=== PATIENT | male | born 1965 | race Caucasian/White ===

== ENCOUNTER 2021-08-16 10:59 | Emergency (ER) | payer OTHER, SELFPAY ==
[2021-08-16 11:27] VITALS: BP 137/58; PULSE 98; RESP 18; TEMP 36.4; O2SAT 98
--- NOTE | 2021-08-16 11:31 | ED.GENADULT ---
HPI - General Adult General Chief complaint: Upper Respiratory Infection Stated complaint: cough,congestion,sorethroat Source: patient Mode of arrival: ambulatory Limitations: no limitations History of Present Illness HPI narrative: Patient presents for evaluation of respiratory complaints for the last 4 to 5 days. Symptoms include sinus congestion, sore throat, nonproductive cough and muffled hearing in left ear. He felt like he had water in the left ear . He attempted to clean it out with a Q tip and now has muffled hearing in left ear. No fever, chills, nausea, vomiting. He had diarrhea this morning but attributes it to OTC meds he has been taking including Dayquil, Nyquil and robitussin. He is a former smoker, with quit date in the last week. His grandson, with whom he has been spending time recently, has similar symptoms. Pt received a flu shot this year, COVID vaccinations and booster. He denies any chest pain, SOB, nausea, vomiting, fever or chills. Related Data Allergies Allergy/AdvReac Type Severity Reaction Status Date / Time No Known Allergies Allergy Verified 08/16/21 11:29 Review of Systems Review of Systems: CONSTITUTIONAL: Denies fever, chills, or sweats. EYES: Denies visual changes, redness, or discharge. ENT: Reports sinus congestion, sore throat, left-sided otalgia, muffled hearing in the left ear. CARDIOVASCULAR: Denies chest pain, palpitations, or edema. RESPIRATORY: Reports nonproductive cough. Denies dyspnea. GASTROINTESTINAL: Reports diarrhea. Denies abdominal pain, nausea, vomiting GENITOURINARY: Denies dysuria or hematuria. SKIN: Denies rash or itching. MUSCULOSKELETAL: Denies back pain, joint pain, or myalgia. NEUROLOGIC: Denies headache, numbness, dizziness, or weakness. PSYCHIATRIC: Denies anxiety or depression. [facility] Past Medical History Medical History History of tobacco use Surgical History Surgical History H/O arthroscopic knee surgery History of right knee joint replacement Family History Family History Mother Family history non-contributory Social History Social History Smoking status: Former smoker Substance use: current Substance use type: marijuana Living arrangements: with family Gender identity (if verbalized by the patient): Male Sexual Orientation (if Verbalized by the Patient): Straight or Heterosexual Spiritual care concerns: No Exam Narrative: GENERAL: Well-appearing, well-nourished, and in no acute distress. HEAD: Normocephalic, atraumatic. EYES: PERRLA and EOMI. ENT: Nares clear, no rhinorrhea or epistaxis. Mucous membranes moist. Oropharynx without tonsillar hypertrophy exudate or other lesions. Left ear canal is erythematous with yellow exudate. Left TM is erythematous. NECK: Supple. No adenopathy or masses. No carotid bruits or JVD CHEST: Clear to auscultation. No respiratory distress. No wheezes rales or rhonchi HEART: Regular rate and rhythm. No murmur heard. Normal peripheral pulses. ABDOMEN: Soft, nontender, nondistended, normal active bowel sounds. EXTREMITIES: Normal range of motion. No edema. SKIN: Warm, dry, no rash. NEURO: No focal deficits. Alert and oriented x3. PSYCH: Normal mood and affect. Course Course Emergency Course: This is a 56-year-old male who presented with complaints of respiratory symptoms for the last 4 to 5 days. Strep, influenza, COVID were all negative. Exam is consistent with acute viral syndrome. Continue medications for symptom control. He has evidence of otitis externa. Will discharge with Cetraxal. Follow up outpatient for further evaluation and treatment and return for worsening symptoms. Pt in agreement with plan of care. Level of Care: Express Care Visit Vital Signs Vital signs: Vital Signs Temperature 36.4 C
== END 2021-08-16 12:00 | disposition home or self-care (01) ==
PROVIDERS: Emergency Provider Nurse Practitioner
DX: B34.9 Viral infection, unspecified (principal); H60.92 Unspecified otitis externa, left ear; Z20.822 Contact with and (suspected) exposure to COVID-19; Z87.891 Personal history of nicotine dependence
CPT/HCPCS: 87081; 87426; 87804; 87880; 99203; C9803; G0463

== ENCOUNTER 2022-02-23 15:39 | Emergency (ER) | payer OTHER, SELFPAY ==
[2022-02-23 16:22] VITALS: BP 135/89; PULSE 83; RESP 16; TEMP 36.4; O2SAT 100
--- NOTE | 2022-02-25 12:20 | ED.GENADULT ---
HPI - General Adult General Chief complaint: Upper Respiratory Infection Stated complaint: cough,congestion History of Present Illness HPI narrative: 56 y/o male. PMHx Former smoker. Presents to [facility] today with acute complaints of purulent nasal discharge and 'green' productive cough. Manifestations ongoing for > 2 wks. No fevers. Denies chest pain, palpitations,, wheezing, dyspnea. No GI upset, N/V. Denies known ill contacts. Related Data Allergies Allergy/AdvReac Type Severity Reaction Status Date / Time No Known Allergies Allergy Verified 02/23/22 16:30 Review of Systems Review of Systems: CONSTITUTIONAL: Denies fever, chills, sweats. EYES: Denies visual changes, redness, discharge. ENT: Positive rhinorrhea, congestion. No sore throat, otalgia. CARDIOVASCULAR: Denies chest pain, palpitations, edema. RESPIRATORY: Denies dyspnea, wheezing. Positive 'green' productive cough GASTROINTESTINAL: Denies abdominal pain, nausea, vomiting, diarrhea. All other systems have been reviewed: Unless noted remaining ROS Negative. PMFSH Past Medical History Medical History History of tobacco use Surgical History Surgical History H/O arthroscopic knee surgery History of right knee joint replacement Family History Family History Mother Family history non-contributory Social History Social History Smoking status: Former smoker Substance use: current Substance use type: marijuana Gender identity (if verbalized by the patient): Male Sexual Orientation (if Verbalized by the Patient): Straight or Heterosexual Spiritual care concerns: No Exam Narrative: GENERAL: This is a well-nourished, well-developed adult, in no apparent distress. HEAD: normocephalic, atraumatic. EYES: PERRL. Sclera clear/white. EARS: External ears normal, auditory canals clear and without drainage, TMs normal. NOSE: External nose normal. Positive Rhinorrhea, no obstruction, nares patent. THROAT: Mucous membranes moist, posterior pharynx clear. No exudates. NECK: Neck supple, non-tender without lymphadenopathy, masses or thyromegaly. CARDIOVASCULAR: Regular rate and rhythm without murmurs, gallops, or rubs. RESPIRATORY: Clear to auscultation. Breath sounds equal bilaterally. No wheezes, rales, or rhonchi. GASTROINTESTINAL: Abdomen soft, non-tender, nondistended. Bowel sounds are active. No guarding. SKIN: warm, intact with no suspicious lesions or rash, good texture and turgor. NEURO: Alert, active, and age appropriate. No focal neurologic deficits. EXTREMITIES: Negative. Course Course Level of Care: Express Care Visit Vital Signs Vital signs: Vital Signs Temperature 36.4 C L 02/23/22 16:22 Pulse Rate 83 02/23/22 16:22 Respiratory Rate 16 02/23/22 16:22 Blood Pressure 135/89 02/23/22 16:22 Pulse Oximetry 100 02/23/22 16:22 Temperature 36.4 C L 02/23/22 16:22 Pulse Rate 83 02/23/22 16:22 Respiratory Rate 16 02/23/22 16:22 Blood Pressure 135/89 02/23/22 16:22 Pulse Oximetry 100 02/23/22 16:22 Medical Decision Making Differential Diagnosis Differential Diagnosis: Differential Diagnosis: Consideration of the following conditions may be warranted for the presenting problem, they are not final diagnoses: upper respiratory infection, otitis media, sinusitis, RSV viral infection, PNA, bronchitis, pharyngitis, Streptococcal sore throat, COVID-19, Influenza, and other. Vital Signs Vital Signs: Vital Signs Temperature 36.4 C L 02/23/22 16:22 Pulse Rate 83 02/23/22 16:22 Respiratory Rate 16 02/23/22 16:22 Blood Pressure 135/89 02/23/22 16:22 Pulse Oximetry 100 02/23/22 16:22 Temperature 36.4 C L 02/23/22 16:22 Pulse Rate 83 02/23/22 16:22 Respiratory Rate 16 02/23/22 16:2
== END 2022-02-23 17:09 | disposition home or self-care (01) ==
PROVIDERS: Emergency Provider Nurse Practitioner Adult Health
DX: J40 Bronchitis, not specified as acute or chronic (principal); Z87.891 Personal history of nicotine dependence; F12.90 Cannabis use, unspecified, uncomplicated
CPT/HCPCS: 99213; G0463

== ENCOUNTER 2022-07-12 13:28 | Emergency (ER) | payer OTHER, SELFPAY ==
--- NOTE | 2022-07-12 13:32 | ED.EYEPROB ---
HPI - Eye Problem General Chief complaint: Eye Problems Stated complaint: eye irritation Time Seen by Provider: 07/12/22 13:32 Source: patient Mode of arrival: ambulatory Limitations: no limitations History of Present Illness HPI Narrative: A 57-year-old male who presents with bilateral eye irritation, redness, mildly blurred vision since Sunday. Patient states grandson has pinkeye currently. Patient denies any pain. Woke up today with eyes matted shut. Patient states symptoms started in the right eye today have moved to left eye along with right eye. Denies any fever, chills, congestion, ear pain, cough, nausea, vomiting, diarrhea. Related Data Allergies Allergy/AdvReac Type Severity Reaction Status Date / Time No Known Allergies Allergy Verified 07/12/22 13:46 Review of Systems Review of Systems: All systems reviewed & are unremarkable except as noted in HPI and below Constitutional: Constitutional: Denies body ache(s), Denies fever(s), Denies headache(s), Denies malaise and Denies weakness Eyes: Eyes: Reports blurry vision, Reports eye discharge, Reports irritation, Reports itchy eyes, Denies loss of vision and Denies eye pain ENT: Denies otalgia, Denies headache(s), Denies nasal discharge, Denies sinus pain and Denies sore throat Cardiovascular: Cardiovascular: Denies chest pain, Denies irregular heart rhythm and Denies dyspnea Respiratory: Respiratory: Denies dyspnea Gastrointestinal: Gastrointestinal: Denies abdominal pain, Denies diarrhea, Denies nausea and Denies vomiting Musculoskeletal: Musculoskeletal: Denies back pain, Denies myalgias and Denies arthralgias Integumentary/Breasts: Skin/Breast: Denies pruritus and Denies rash Neurologic: Denies headache(s), Denies loss of vision and Denies weakness Psychiatric: Psychiatric: Reports no additional psychiatric complaints Allergic/Immunologic: Allergic/Immunologic: Reports itchy eyes PMFSH Past Medical History Medical History History of tobacco use Surgical History Surgical History H/O arthroscopic knee surgery History of right knee joint replacement Family History Family History Mother Family history non-contributory Social History Social History Smoking status: Former smoker Substance use: current Substance use type: marijuana Living arrangements: with family Gender identity (if verbalized by the patient): Male Sexual Orientation (if Verbalized by the Patient): Straight or Heterosexual Spiritual care concerns: No Comments At time of signature, agree with nursing past medical, surgical, social and family history. There is no relevant family history pertinent to the presenting complaint. Exam Const: General: cooperative, healthy appearing, comfortable, no acute distress and well nourished Nutritional Appearance: well nourished Orientation/consciousness: patient oriented x3 Limitations: no limitations HENMT: Head: normal to inspection, normocephalic and atraumatic Ears: external ears normal Face/Nose/Sinus: Normal external nose present, normal facial exam and face symmetric Face and sinus: normal facial exam and face symmetric Mouth: Yes lip normal Eyes: General: appearance normal, both eyes and all related structures Visual Villalba: normal visual villalba by confrontation Alignment and Position: alignment normal and position normal Periorbital: periorbital findings normal Eyelids: eyelids normal Conjunctivae: conjunctival abnormality bilateral conjunctival injection diffuse and discharge mucoid Sclera: scleral abnormality bilateral scleral injection diffuse Pupils: Equal, round and reactive pupils present EOM: EOMs intact bilaterally Direct Ophthalmoscopy: no photophobia Other: No hyphema, no foreign body under the lids. Neck: Neck: normal visua
[2022-07-12 13:42] VITALS: BP 131/78; PULSE 76; RESP 18; TEMP 36.5; O2SAT 99
== END 2022-07-12 14:09 | disposition home or self-care (01) ==
PROVIDERS: Emergency Provider Nurse Practitioner Family
DX: H10.33 Unspecified acute conjunctivitis, bilateral (principal); F12.90 Cannabis use, unspecified, uncomplicated; Z87.891 Personal history of nicotine dependence
CPT/HCPCS: 99213; G0463

== ENCOUNTER 2022-07-15 11:52 | Emergency (ER) | payer OTHER, SELFPAY ==
[2022-07-15 12:00] VITALS: BP 117/72; PULSE 93; RESP 18; TEMP 36.6; O2SAT 100
--- NOTE | 2022-07-15 12:09 | ED.URI ---
HPI - URI/Sore Throat General Chief Complaint: Upper Respiratory Infection Stated Complaint: Cough,Congestion Time Seen by Provider: 07/15/22 12:03 Source: patient and RN notes reviewed Mode of arrival: ambulatory Limitations: no limitations History of Present Illness HPI Narrative: Patient presents today complaining of body aches, headache, cough, congestion, rhinorrhea since yesterday. Denies sore throat, shortness of breath, or fever. Denies history of asthma or COPD. He has been using Cold-eeze without relief. Smokes half pack per day. Was recently treated 3 days ago for conjunctivitis, which has improved. Related Data Allergies Allergy/AdvReac Type Severity Reaction Status Date / Time No Known Allergies Allergy Verified 07/15/22 11:54 Review of Systems Review of Systems: CONSTITUTIONAL: Denies fever, chills, or sweats.+ body aches EYES: Denies visual changes, redness, or discharge. ENT: Denies sore throat, or otalgia.+ rhinorrhea, congestion CARDIOVASCULAR: Denies chest pain, palpitations, or edema. RESPIRATORY: Denies dyspnea.+ cough GASTROINTESTINAL: Denies abdominal pain, nausea, vomiting, or diarrhea. GENITOURINARY: Denies dysuria or hematuria. SKIN: Denies rash, itching, or wounds. MUSCULOSKELETAL: Denies back pain, joint pain, or myalgia. NEUROLOGIC: Denies numbness, tingling, or weakness.+ headache PSYCH: Denies depression or anxiety. [facility] Past Medical History Medical History History of tobacco use Surgical History Surgical History H/O arthroscopic knee surgery History of right knee joint replacement Family History Family History Mother Family history non-contributory Social History Social History Smoking status: Former smoker Substance use: current Substance use type: marijuana Living arrangements: with family Gender identity (if verbalized by the patient): Male Sexual Orientation (if Verbalized by the Patient): Straight or Heterosexual Spiritual care concerns: No Comments At time of signature, I have reviewed and agree with nursing past medical, surgical, social and family history unless otherwise noted. Please see nursing chart for further information. There is no relevant family history pertinent to the presenting complaint Exam Narrative: GENERAL: Mildly ill-appearing, well-nourished, and in no acute distress. HEAD: Normocephalic, atraumatic. EYES: EOMI. No redness or drainage. Conjunctivae normal. ENT: Mucous membranes pink and moist. Nares congested with rhinorrhea. TMs normal bilaterally. Throat normal. Uvula midline. NECK: Normal AROM. Supple. No lymphadenopathy. CHEST: No respiratory distress. Clear to auscultation. HEART: Regular rate and rhythm. No murmur appreciated. Normal peripheral pulses. EXTREMITIES: Normal range of motion. No edema. SKIN: Warm, dry, no rash. Capillary refill normal. Normal skin turgor. NEURO: No focal deficits. Alert and oriented x3. Gait steady. PSYCH: Normal affect. No signs of depression or anxiety. Course Course Level of Care: Express Care Visit Vital Signs Vital signs: Vital Signs Temperature 97.9 F 07/15/22 12:00 Pulse Rate 93 07/15/22 12:00 Respiratory Rate 18 07/15/22 12:00 Blood Pressure 117/72 07/15/22 12:00 Pulse Oximetry 100 07/15/22 12:00 Oxygen Delivery Room Air 07/15/22 12:00 Temperature 97.9 F 07/15/22 12:00 Pulse Rate 93 07/15/22 12:00 Respiratory Rate 18 07/15/22 12:00 Blood Pressure 117/72 07/15/22 12:00 Pulse Oximetry 100 07/15/22 12:00 Oxygen Delivery Room Air 07/15/22 12:00 Reviewed MDM - URI/Sore Throat MDM Narrative Medical decision making narrative: Influenza and COVID-19 tests are negative. Symptoms likely due to a viral illness. No prescription
== END 2022-07-15 12:39 | disposition home or self-care (01) ==
PROVIDERS: Emergency Provider Nurse Practitioner
DX: J06.9 Acute upper respiratory infection, unspecified (principal); Z20.822 Contact with and (suspected) exposure to COVID-19; Z87.891 Personal history of nicotine dependence
CPT/HCPCS: 87426; 87804; 99213; C9803; G0463

== ENCOUNTER 2022-07-23 16:17 | Emergency (ER) | payer OTHER, SELFPAY ==
--- NOTE | ~2022-07-23 | XR_ITS ---
EXAMINATION: XR chest 2V DATE: 07/23/2022 16:35 INDICATION: Cough, congestion and fatigue TECHNIQUE: PA and lateral views of the chest were obtained. COMPARISON: None FINDINGS: Mild perihilar bronchial wall thickening, left greater than right without focal airspace consolidatio n. No pleural effusion or pneumothorax. Calcified right middle lobe nodule consistent with old granul omatous disease. The cardiomediastinal silhouette is normal. Mild thoracic spondylosis with chronic a ppearing mild anterior wedging of a a few mid and lower thoracic vertebral bodies. IMPRESSION: 1. Perihilar bronchial wall thickening without focal airspace consolidation which could be seen with bronchitis or reactive airway disease/asthma. Reviewed, dictated and finalized at location A. IMPRESSION: 1. Perihilar bronchial wall thickening without focal airspace consolidation whi ch could be seen with bronchitis or reactive airway disease/asthma.
--- NOTE | 2022-07-23 16:19 | ED.URI ---
HPI - URI/Sore Throat General Chief Complaint: Upper Respiratory Infection Stated Complaint: Congestion,Cough,Fatigue Time Seen by Provider: 07/23/22 16:21 Source: patient Mode of arrival: ambulatory Limitations: no limitations History of Present Illness HPI Narrative: Mr. Carvalho is a 57-year-old male patient presenting to the clinic today with complaints of productive cough cough, chest and head congestion, and fatigue for 9 days. States that 3 days prior to that he had conjunctivitis and was treated. He denies any fever or chills. He is a current smoker. No history of asthma or COPD. Denies any shortness of breath or chest pain. MD elicited complaint: cough, nasal congestion and other (Fatigue) Related Data Allergies Allergy/AdvReac Type Severity Reaction Status Date / Time No Known Allergies Allergy Verified 07/23/22 16:30 Review of Systems Review of Systems: Pertinent positives per HPI. Patient denies any fever, chills, rash, headache, visual changes, dizziness, shortness of breath, chest pain, palpitations, nausea, vomiting, diarrhea, constipation, abdominal pain, or any urinary issues. PMFSH Past Medical History Medical History History of tobacco use Surgical History Surgical History H/O arthroscopic knee surgery History of right knee joint replacement Family History Family History Mother Family history non-contributory Social History Social History Smoking status: Former smoker Substance use: current Substance use type: marijuana Living arrangements: with family Gender identity (if verbalized by the patient): Male Sexual Orientation (if Verbalized by the Patient): Straight or Heterosexual Spiritual care concerns: No Comments At the time of my signature, I reviewed and agree with the nursing past medical, surgical, social, and family history. There is no relevant family history pertinent to the patient complaint. Exam Narrative: General: Well-developed, well nourished, in no apparent distress Head: Normocephalic, atraumatic Eyes: Pupils equally round and reactive to light bilaterally, EOM intact, sclera and conjunctive clear, no discharge, lids normal Ears: TMs intact and congested, ear canals clear, no drainage, grossly hearing normal. Nose: Nares patent, clear nasal discharge, moderate inflammation, no sinus tenderness. Mouth: Oral pharynx without lesions or masses, good dentition, MMM. Postnasal drip Neck: Supple, trachea midline, no enlargement of anterior or posterior cervical nodes, no thyroid masses or goiter palpable. Cardio: Regular rate and rhythm, s1 and s2 normal, no murmur appreciated. Resp: Clear to auscultation bilaterally, no rhonchi, rales, wheezing or rubs Course Course Emergency Course: Portions of this record may have been created with voice recognition software. Level of Care: Express Care Visit Vital Signs Vital signs: Vital signs reviewed MDM - URI/Sore Throat MDM Narrative Medical decision making narrative: At the time of visit patient is resting comfortably on the exam table. Chest x-ray was performed to rule out pneumonia. Patient has no sign of pneumonia on the x-ray however that shows sign of reactive airway disease versus bronchitis. Will send in prescription for albuterol inhaler and prednisone. Supportive measures were discussed with the patient and he voiced understanding discharge instructions agrees to treatment Differential Diagnosis Differential diagnosis: Likely upper respiratory infection, otitis media, sinusitis, viral infection, bronchitis, influenza, pharyngitis and other (COVID) Imaging Data Radiologist's impression: [address] [id number] XRay Report Signed Patient: Theo Carvalho
[2022-07-23 16:24] VITALS: BP 118/78; PULSE 89; RESP 18; TEMP 37.1; O2SAT 98
== END 2022-07-23 16:46 | disposition home or self-care (01) ==
PROVIDERS: Emergency Provider Nurse Practitioner Family
DX: J40 Bronchitis, not specified as acute or chronic (principal); Z87.891 Personal history of nicotine dependence; F12.90 Cannabis use, unspecified, uncomplicated; Z96.651 Presence of right artificial knee joint
CPT/HCPCS: 71046; 99213; G0463

== ENCOUNTER 2022-11-13 15:52 | Emergency (ER) | payer OTHER, SELFPAY ==
--- NOTE | 2022-11-13 16:26 | ED.URI ---
HPI - URI/Sore Throat General Chief Complaint: Upper Respiratory Infection Stated Complaint: Cough,Congestion Time Seen by Provider: 11/13/22 16:26 Source: patient Mode of arrival: ambulatory Limitations: no limitations History of Present Illness HPI Narrative: 57-year-old male presents with complaint of cough, chest congestion for the past 2 weeks. Patient reports pain to chest with coughing. Today feels like he cannot take a full breath. Denies shortness of breath. Reports history of bronchitis. Patient is a current everyday smoker. Afebrile. All systems reviewed and negative except as noted above. Related Data Allergies Allergy/AdvReac Type Severity Reaction Status Date / Time No Known Allergies Allergy Verified 11/13/22 16:31 Review of Systems Review of Systems: CONSTITUTIONAL: Denies fever, chills, or sweats. EYES: Denies visual changes, redness, or discharge. ENT: Denies rhinorrhea, congestion, sore throat, or otalgia. CARDIOVASCULAR: Denies chest pain, palpitations, or edema. RESPIRATORY: Reports cough, chest congestion. Denies dyspnea. GASTROINTESTINAL: Denies abdominal pain, nausea, vomiting, or diarrhea. GENITOURINARY: Denies dysuria or hematuria. SKIN: Denies rash or itching. MUSCULOSKELETAL: Denies back pain, joint pain, or myalgia. NEUROLOGIC: Denies headache, numbness, or weakness. PSYCHIATRIC: Denies anxiety or depression. All other systems reviewed are negative, except as documented in HPI. [facility] Past Medical History Medical History History of tobacco use Surgical History Surgical History H/O arthroscopic knee surgery History of right knee joint replacement Family History Family History Mother Family history non-contributory Social History Social History Smoking status: Former smoker Substance use: current Substance use type: marijuana Living arrangements: with family Gender identity (if verbalized by the patient): Male Sexual Orientation (if Verbalized by the Patient): Straight or Heterosexual Spiritual care concerns: No Comments At time of signature, agree with nursing past medical, surgical, social and family history. There is no relevant family history pertinent to the presenting complaint. Exam Narrative: GENERAL: This is a well-nourished, well-developed patient, in no apparent distress. HEAD: normocephalic, atraumatic. EYES: PERRL. Sclera clear/white. Vision is grossly intact. EARS: External ears normal, auditory canals clear and without drainage, TMs normal without perforation. Hearing grossly intact. NOSE: External nose normal with no obvious nasal discharge, nares without redness, no rhinorrhea. THROAT: Mucous membranes moist, posterior pharynx clear. NECK: Neck supple, non-tender without lymphadenopathy, masses or thyromegaly. CARDIOVASCULAR: Regular rate and rhythm without murmurs, gallops, or rubs. RESPIRATORY: Clear to auscultation. Breath sounds equal bilaterally. No wheezes, rales, or rhonchi. SKIN: warm, Dry, intact with no suspicious lesions or rash, good texture and turgor. NEURO: awake, alert, and oriented to person, place and time. There were no obvious focal neurologic abnormalities. EXTREMITIES: No joint tenderness, effusion, or edema noted. Course Course Level of Care: Express Care Visit Vital Signs Vital signs: reviewed MDM - URI/Sore Throat MDM Narrative Medical decision making narrative: will treat patient with antibiotic due to duration of symptoms. Patient is aware of diagnosis, understands and agrees to treatment plan. Anticipatory guidance given. Patient agrees to follow-up as directed and is aware of reasons to seek care at the emergency department. Portions of this record may have been created with voice recognition software
[2022-11-13 16:27] VITALS: BP 134/91; PULSE 85; RESP 20; TEMP 36.5; O2SAT 100
== END 2022-11-13 16:52 | disposition home or self-care (01) ==
PROVIDERS: Emergency Provider Nurse Practitioner Family
DX: J20.9 Acute bronchitis, unspecified (principal); Z87.891 Personal history of nicotine dependence; F12.90 Cannabis use, unspecified, uncomplicated; Z96.651 Presence of right artificial knee joint
CPT/HCPCS: 99213; G0463

== ENCOUNTER 2023-01-24 15:18 | Emergency (ER) | payer OTHER, SELFPAY ==
--- NOTE | 2023-01-24 15:25 | ED.URI ---
HPI - URI/Sore Throat General Chief Complaint: Skin/Abscess/Foreign Body Stated Complaint: sorethroat,congestion,rash Time Seen by Provider: 01/24/23 15:20 Source: patient Mode of arrival: ambulatory Limitations: no limitations History of Present Illness HPI Narrative: Patient is a 57-year-old male who presents with 2 days of congestion, cough and sore throat and generalized rash to extremities. Patient has not taken anything for symptoms. States the rash is not itchy and has not spread. Patient denies any new soaps, detergents. 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 Denies any fever, chills, nausea, vomiting, diarrhea, ear pain, sinus pressure. Related Data Allergies Allergy/AdvReac Type Severity Reaction Status Date / Time No Known Allergies Allergy Verified 11/13/22 16:31 Review of Systems Review of Systems: All systems reviewed & are unremarkable except as noted in HPI and below Constitutional: Constitutional: Denies body ache(s), Denies chills, Denies fatigue, Denies fever(s), Denies headache(s), Denies malaise and Denies weakness Eyes: Eyes: Denies blurry vision, Denies itchy eyes and Denies loss of vision ENT: Denies otalgia, Denies headache(s), Reports nasal congestion, Denies sinus pain and Reports sore throat Cardiovascular: Cardiovascular: Denies chest pain, Denies irregular heart rhythm and Denies dyspnea Respiratory: Respiratory: Reports cough and Denies dyspnea Gastrointestinal: Gastrointestinal: Denies abdominal pain, Denies diarrhea, Denies nausea and Denies vomiting Musculoskeletal: Musculoskeletal: Denies back pain, Denies myalgias and Denies arthralgias Integumentary/Breasts: Skin/Breast: Denies pruritus and Reports rash Neurologic: Denies headache(s), Denies loss of vision and Denies weakness Psychiatric: Psychiatric: Reports no additional psychiatric complaints Endocrine: Endocrine: Denies fatigue Allergic/Immunologic: Allergic/Immunologic: Denies itchy eyes PMFSH Past Medical History Medical History History of tobacco use Surgical History Surgical History H/O arthroscopic knee surgery History of right knee joint replacement Family History Family History Mother Family history non-contributory Social History Social History Smoking status: Former smoker Substance use: current Substance use type: marijuana Living arrangements: with family Gender identity (if verbalized by the patient): Male Sexual Orientation (if Verbalized by the Patient): Straight or Heterosexual Spiritual care concerns: No Comments At time of signature, agree with nursing past medical, surgical, social and family history. There is no relevant family history pertinent to the presenting complaint. Exam Const: General: cooperative, healthy appearing, comfortable, no acute distress and well nourished Nutritional Appearance: well nourished Orientation/consciousness: patient oriented x3 Limitations: no limitations HENMT: Head: normal to inspection, normocephalic and atraumatic Ears: hearing grossly normal bilaterally, external ears normal, TM's normal bilaterally, EAC's normal and no periauricular adenopathy Face/Nose/Sinus: Normal external nose present, Abnormal mucous membranes and turbinates present erythematous bilateral and diffuse, normal facial exam, sinuses nontender and face symmetric Face and sinus: normal facial exam, sinuses nontender and face symmetric Mouth: Yes Normal oral and palatal mucosa present, Yes lip normal, Yes tongue normal, Yes Normal salivary glands and ducts present, Yes oropharynx normal and Yes moist mucous membranes Teeth and gingiva: dentition normal Throat: tonsils normal, uvula midline, posterior marek
[2023-01-24 15:28] VITALS: BP 124/83; PULSE 92; RESP 16; TEMP 36.4; O2SAT 99
== END 2023-01-24 15:53 | disposition home or self-care (01) ==
PROVIDERS: Emergency Provider Nurse Practitioner Family
DX: B34.9 Viral infection, unspecified (principal); Z87.891 Personal history of nicotine dependence; F12.90 Cannabis use, unspecified, uncomplicated
CPT/HCPCS: 87081; 87880; 99213; G0463

== ENCOUNTER 2023-07-28 09:46 | Emergency (ER) | payer OTHER, SELFPAY ==
[2023-07-28 10:06] VITALS: BP 124/76; PULSE 64; RESP 16; TEMP 36.5; O2SAT 97
--- NOTE | 2023-07-28 10:16 | ED.URI ---
HPI - URI/Sore Throat General Chief Complaint: Upper Respiratory Infection Stated Complaint: Congestion/Cough Time Seen by Provider: 07/28/23 10:35 Source: patient and RN notes reviewed Mode of arrival: ambulatory Limitations: no limitations History of Present Illness HPI Narrative: 58-year-old male presents concern for one-week history of sinus congestion, copious nasal drainage, cough. Reports his grandchild had similar symptoms. He is a smoker. He reports he has an inhaler at home he has not used. He has taken Flonase, NyQuil, Tylenol. MD elicited complaint: cough, rhinorrhea and nasal congestion Related Data Allergies Allergy/AdvReac Type Severity Reaction Status Date / Time No Known Allergies Allergy Verified 07/28/23 10:11 Review of Systems Review of Systems: CONSTITUTIONAL: Denies malaise, chills, sweats, or fever. EYES: Denies visual changes, redness, or discharge. ENT: Reports rhinorrhea, congestion, sinus pain, sore throat. CARDIOVASCULAR: Denies chest pain, palpitations, or edema. RESPIRATORY: Reports cough. Denies dyspnea. GASTROINTESTINAL: Denies abdominal pain, nausea, vomiting, diarrhea SKIN: Denies rash or itching. MUSCULOSKELETAL: Denies myalgia. NEUROLOGIC: Reports headache. All systems reviewed & are unremarkable except as noted in HPI and below PMFSH Past Medical History Medical History History of tobacco use Surgical History Surgical History H/O arthroscopic knee surgery History of right knee joint replacement Family History Family History Mother Family history non-contributory Social History Social History Smoking status: Former smoker Substance use: current Substance use type: marijuana Living arrangements: with family Gender identity (if verbalized by the patient): Male Sexual Orientation (if Verbalized by the Patient): Straight or Heterosexual Spiritual care concerns: No Comments At time of signature, agree with nursing past medical, surgical, social and family history. There is no relevant family history pertinent to the presenting complaint Exam Narrative: GENERAL: Well-appearing, well-nourished, and in no acute distress. HEAD: Normocephalic EYES: PERRLA, conjunctivae clear ENT: Nares clear, turbinates edematous and erythematous. Mucous membranes moist. TM pearly gracia with dull light reflex bilaterally; no tragal tenderness. Oropharynx not erythematous without lesions. Tonsils not enlarged and without exudate, no drooling, no hoarseness, no trismus, uvula midline. NECK: Supple. No lymphadenopathy CHEST: Expiratory wheeze throughout, with scattered rhonchi, breath sounds equal. No wheezing, rhonchi, rales, or stridor. No respiratory distress, speaks in full sentences. HEART: Regular rate and rhythm. No murmur heard. SKIN: Warm, dry, no rash. NEURO: Alert and oriented x3. PSYCH: Normal mood and affect Course Course Emergency Course: Patient is aware of diagnosis, understands and agrees to treatment plan. Anticipatory guidance given. Patient agrees to follow-up as directed and is aware of reasons to seek care at the emergency department. Portions of this record may have been created with voice recognition software Level of Care: Express Care Visit Vital Signs Vital signs: Vital Signs Temperature 97.7 F 07/28/23 10:06 Pulse Rate 64 07/28/23 10:06 Respiratory Rate 16 07/28/23 10:06 Blood Pressure 124/76 07/28/23 10:06 Pulse Oximetry 97 07/28/23 10:06 Oxygen Delivery Room Air 07/28/23 10:06 Temperature 97.7 F 07/28/23 10:06 Pulse Rate 64 07/28/23 10:06 Respiratory Rate 16 07/28/23 10:06 Blood Pressure 124/76 07/28/23 10:06 Pulse Oximetry 97 07/28/23 10:06 Oxygen Delivery Room Air 07/28/23 10:06 Reviewed. MDM - URI/Sore Throat MDM
== END 2023-07-28 10:46 | disposition home or self-care (01) ==
PROVIDERS: Emergency Provider Nurse Practitioner
DX: J32.9 Chronic sinusitis, unspecified (principal); J40 Bronchitis, not specified as acute or chronic; Z87.891 Personal history of nicotine dependence; F12.90 Cannabis use, unspecified, uncomplicated; Z96.651 Presence of right artificial knee joint
CPT/HCPCS: 99213; G0463

== ENCOUNTER 2024-05-07 13:49 | Emergency (ER) | payer OTHER, SELFPAY ==
--- NOTE | 2024-05-07 13:52 | ED.URI ---
HPI - URI/Sore Throat General Chief Complaint: Upper Respiratory Infection Stated Complaint: coughing and phlegm Time Seen by Provider: 05/07/24 13:52 Source: patient Mode of arrival: ambulatory Limitations: no limitations History of Present Illness HPI Narrative: Theo is a 59-year-old male patient presenting to the clinic today with complaints of a productive cough with yellow phlegm, headache, body aches, and chest congestion. He reports no known fever but has had some chills fatigue. Denies any chest pain but does have some mild shortness of breath times. He is a current smoker. No history of COPD or asthma MD elicited complaint: cough and nasal congestion Related Data Allergies Allergy/AdvReac Type Severity Reaction Status Date / Time No Known Allergies Allergy Verified 05/07/24 13:57 Review of Systems Review of Systems: Pertinent positives per HPI. Patient denies any rash, headache, visual changes, dizziness, shortness of breath, chest pain, palpitations, nausea, vomiting, diarrhea, constipation, abdominal pain, or any urinary issues. PMFSH Past Medical History Medical History History of tobacco use Surgical History Surgical History History of right knee joint replacement H/O arthroscopic knee surgery Family History Family History Mother Family history non-contributory Social History Social History Smoking status: Former smoker Substance use: current Substance use type: marijuana Living arrangements: with family Gender identity (if verbalized by the patient): Male Sexual Orientation (if Verbalized by the Patient): Straight or Heterosexual Spiritual care concerns: No Comments At the time of my signature, I reviewed and agree with the nursing past medical, surgical, social, and family history. There is no relevant family history pertinent to the patient complaint. Exam Narrative: General: Well-developed, well nourished, in no apparent distress Head: Normocephalic, atraumatic Eyes: Pupils equally round and reactive to light bilaterally, EOM intact, sclera and conjunctive clear, no discharge, lids normal Ears: TMs intact and clear, ear canals clear, no drainage, grossly hearing normal. Nose: Nares patent, clear nasal discharge, mild inflammation, no sinus tenderness. Mouth: Oral pharynx without lesions or masses, good dentition, MMM. Neck: Supple, trachea midline, no enlargement of anterior or posterior cervical nodes, no thyroid masses or goiter palpable. Cardio: Regular rate and rhythm, s1 and s2 normal, no murmur appreciated. Resp: Lung sounds diminished in the bases otherwise clear, no rhonchi, rales, wheezing or rubs Course Course Emergency Course: Portions of this record may have been created with voice recognition software. Level of Care: Express Care Visit Vital Signs Vital signs: Vital signs reviewed MDM - URI/Sore Throat MDM Narrative Medical decision making narrative: At the time of visit patient is resting comfortably on the exam table. Patient appears to be nontoxic. Plan: I suspect patient has acute bronchitis. Prescription for azithromycin, prednisone, and albuterol inhaler was sent to the pharmacy. Supportive measures were discussed with the patient and they voiced understanding discharge instructions and agrees to treatment plan. Return precautions reviewed Differential Diagnosis Differential diagnosis: Likely upper respiratory infection, otitis media, sinusitis, viral infection, bronchitis, influenza, pharyngitis and other (COVID) Discharge Plan Discharge Clinical Impression: Bronchitis Patient Disposition: Home, Self-Care Condition: Stable Instructions: Antibiotic Form, Acute Bronchitis (ED) Additional Instructions: Take prescription medications only as prescribed-albuterol inhaler, prednisone, and azithromycin Increase fluids and stay well hydrated Tylenol/motrin for pain/fever Flonase and OTC antihistamines as directed Vicks vapor rub to open sinuses Sinus rinses for congestion Cepacol spray, cough drops, throat lozenges, warm tea with honey/lemon, gargle salt water to soothe throat BRAT diet for diarrhea Clear liquids x 24 hours then advance as tolerated for nausea/vomiting Go to the ED if you develop a worsening in your condition- high fever not controlled by Tylenol or Motrin, dehydration, weakness, lethargy, shortness of breath, or chest pain. Follow up with your PCP in 3-5 days if symptoms persist. Patient Language: Trinidadian Prescriptions: New azithromycin 250 mg tablet See Rx Instructions .ROUTE .COMPLEX Qty: 6 0RF Rx Instructions: For 250 mg dose pack: take 500 mg today (day 1), then 250 mg for 4 days (days 2-5) prednisone 20 mg tablet 40 mg PO DAILY 5 Days Qty: 10 0RF albuterol sulfate 90 mcg/actuation HFA aerosol inhaler 2 puff inhalation Q4-6H PRN (Reason: shortness of breath or wheezing) 30 Days Qty: 8.5 0RF No Action doxycycline monohydrate 100 mg tablet 100 mg PO BID 7 Days Qty: 14 0RF methylprednisolone [Medrol (Sly)] 4 mg tablets,dose pack See Rx Instructions .ROUTE .COMPLEX Qty: 21 0RF Rx Instructions: orally per package directions ipratropium bromide 21 mcg (0.03 %) spray,non-aerosol 2 spray NASAL TID PRN (Reason: nasal drainage) Qty: 30 0RF Rx Instructions: administer into each nostril Follow-up/Referrals: PHYSICIAN,GROCERY CLERK CHECKING [Primary Care Provider] - Stand Alone Forms: Work/School Release IP Time of Disposition: 14:09 Quality NIHSS Nursing Documentation ED NIHSS nursing documentation: reviewed/agree
[2024-05-07 14:01] VITALS: BP 131/80; PULSE 78; RESP 18; TEMP 36.6; O2SAT 98
--- OUTSIDE RECORDS SUMMARY | 2024-05-07 15:34 | XMS_ITS | Patient Health Record ---
Author Organization [facility] [employer] [facility] Address [address] [place] [address] Care Team Providers Care Logistics Assistant Name Role Phone Elyse Garcia Primary Care Provider [phone] ALLERGIES No Known Allergies REASON FOR REFERRAL No Information MEDICATIONS Medication SIG (Take, Route, Fr equency, Duration) Notes Start Date End Date Status Percocet 10-325 MG 1 tablet as needed O rally every 6 hrs 10/25/2023 Active Meloxicam 15 MG 1 tablet Orally Once a day for 30 days 10/25/2023 Active IMMUNIZATIONS Vaccine Route Administration Date Status Comme nts COVID (Historical) Unknown 05/19/2020 Administered COVID (Historical) Unknown 06/16/2020 Administered COVID (Historical) Unknown 03/27/2021 Administered SOCIAL HISTORY Tobacco Use: Social History Observation [...] Problem Shingles (B02.9) Active confirmed Shing les (4030822) Problem Osteoarthritis (M19.90) Active confirmed Osteoarthritis (226967896) VITAL SIGNS Heart Rate 97 /min 10/25/2023 Temperature 97.7 degrees Fahrenheit 10/25/2023 Oximetry 97 % 10/25/2023 Blood pressure diastolic 76 mm Hg 10/25/2023 Weight-kg 101.7 kg 10/25/2023 Height 67 in 10/25/2023 Blood pressure systolic 122 mm Hg 10/25/2023 Weight 224.2 lbs 10/25/2023 BMI 35.11 10/25/2023 Encounters Encounter Location Date Provider Diagnosis [facility] [address] [place] [address] 11/08/2023 Elyse Garcia [facility] [address] [place] [address] 10/23/2023 Elyse Garcia [facility] [address] [place] [address] 10/25/2023 Elyse Garcia Sciatica, right side M54.31 [facility] [address] [place] [address] 06/15/2023 Elyse Garcia ASSESSMENTS Encounter Date Diagnosis Assessment Notes Treatment [...] referral for persistent ssx. PLAN OF TREATMENT No Information Insurance Providers Payer Name Payer Address Payer Phone Subscriber Number Group Number Insured Name Patient Relationship to Insured Coverage Start Date Coverage End Date [employer] [facility] [address] [address] [place] [address] [id number] [phone] Theo Carvalho Self - patient is the insured MEDICAL (GENERAL) HISTORY Medical History History ICD Code Shingles B02.9 Osteoarthritis M19.90 Surgical History Surgery Date(Month/Year) orthopedic surgeon Dr. Victor Hugo castañeda at [facility] - Hx R TKR, 3 months later L TKR completed. 2021
--- OUTSIDE RECORDS SUMMARY | 2024-05-07 15:34 | XMS_ITS | Clinical Summary ---
Author Organization [facility] Address [address] [place] [address] Care Team Providers Care Glove Finisher Name Role Phone Homero Poon Primary Care Provider [phone] Allergies No known active allergies Medications fluticasone propionate (FLONASE) 50 MCG/ACT nasal spray 1 spray by Each Nostril route daily. 15.8 mL 05/06/2021 Active Cetirizine HCl (ZYRTEC ALLERGY) 10 MG Cap Take 1 tablet by mouth daily. 30 capsule 05/06/2021 Active Active Problems No known active problems Family History Medical History Relation Comments BACK Father KNEE REPLACEMENT Father Cancer Mother thyroid Relation Status Comments Father Alive Mother Alive thyroid Social History Tobacco Use Types Packs/Day Years Used Date Smoking Tobacco: Every Day Cigarettes 0.5 20 Smokeless Tobacco: Never Alcohol Use Standard Drinks/Week Comments Yes 0 (1 standard drink = 0.6 oz pur e alcohol) rarely Sex and Gender Information Value Date Recorded Sex Assigned at Not on file Legal Sex Male 6:08 PM CDT Gender Identity Not on file Sexual Orientation Not on file Last Filed Vital Signs Vital Sign Reading Time Taken Comments Blood Pressure 185/115 05/06/2021 2:47 PM SENIOR ELECTRICAL ESTIMATOR Pulse 97 05/06/2021 2:47 PM SENIOR ELECTRICAL ESTIMATOR Temperature 36.7 C (98.1 F) 05/06/2021 2:47 PM SENIOR ELECTRICAL ESTIMATOR Respiratory Rate 20 05/06/2021 2:47 PM SENIOR ELECTRICAL ESTIMATOR Oxygen Saturation 98% 05/06/2021 2:47 PM SENIOR ELECTRICAL ESTIMATOR Inhaled Oxygen Concentration - - Weight 102.1 kg (225 lb) 05/06/2021 2:47 PM SENIOR ELECTRICAL ESTIMATOR Height 170.2 cm (5' 7 ) 05/06/2021 2:47 PM SENIOR ELECTRICAL ESTIMATOR Body Mass Index 35.24 05/06/2021 2:47 PM SENIOR ELECTRICAL ESTIMATOR Plan of Treatment Health Maintenance Due Date Last Done Comments Colorectal Cancer Screening Colonoscopy (10 Years) 1963 Annual Physical 1966 Pneumococcal Vaccine: Pediatrics (0 to 5 Years) and At-Risk Patients (6 to 64 Years) (1 of 2 - PCV) 1969 Hepatitis C 1981 DTaP, Tdap and Td Vaccines ( 1 - Tdap) 1982 Zoster Vaccines (1 of 2) 2013 COVID-19 Vaccine (3 - 2023-2 5 season) 2023 06/16/2020, 05/19/2020 Influenza Adult (#1) 2023 RSV Immunization or 60+ Years (1 - 1-dose 75+ series) 2038 Meningococcal B Vaccine Aged Out No l onger eligible based on patient's age to complete this topic Meningococcal Vaccine Aged Out No maggy za eligible based on patient's age to complete this topic RSV Immunizations Under 20 Months Aged Out No longer eligible b ased on patient's age to complete this topic Insurance Care Teams Glove Finisher Relationship Specialty Start Date End Date Homero Poon PA [address] [place] [address] PCP - General PHYSICIAN END LATHE OPERATOR 02/20/18
--- OUTSIDE RECORDS SUMMARY | 2024-05-07 15:35 | XMS_ITS | Clinical Summary ---
Author Organization [facility] [employer] Address [address] [place] [address] Care Team Providers Care Logistics Planner Name Role Phone Ever Burroughs DO Unavailable [phone] Source Comments [facility] [employer],non-owned Affiliates and Associated Physician Practices is amultiple site organization consisting of ambulatory clinics and hospital sitesin [place], [place], [place] and [place]. This disclosure is being madepursuant to the Care Everywhere program and may not contain all information available regarding this patient. Last updated 17.[employer] Allergies No known active allergies Medications * Be aware that medications may not be up to date on this document. Alwaysverify current medications with the patient. Medication Sig Dispensed Refills Start Date End Date Status diphenhydrAMINE (BENADRYL) 25 MG capsule Take 25 mg by mouth at bedtime Takes nightly for sleep Active Multiple Vitamin (MULTIVITAMIN ADULT PO) Take by mouth once daily Active [place]-3 Fatty Acids (FISH OIL) 1000 MG capsule Take by mouth once daily Active ondansetron (ZOFRAN) 4 MG tablet Take 1 (one) tablet by mouth every 6 hours as needed for Nausea/Vomiting 30 tablet 09/02/2021 Active meloxicam (MOBIC) 15 MG tablet Take 1 (one) tablet by mouth once daily 30 tablet 09/02/2021 Active oxyCODONE-acetaminoph en (PERCOCET) 10-325 MG tablet Take 0.5 (one-half) tablet to 1 (one) tablet by mouth every 6 hours as needed for Pain 28 tablet 09/12/2021 Active oxyCODONE-acetaminoph en (PERCOCET) 10-325 MG tablet Take 0.5 (one-half) tablet to 1 (one) tablet by mouth every 6 hours as needed for Pain 28 tablet 09/24/2021 Active Active Problems Problem Noted Date Diagnosed Date Primary osteoarthritis of both knees 02/07/2021 Social History Tobacco Use Types Packs/Day Years Used Date Smoking Tobacco: Every Day Cigarettes 0.3 40.2 Started: 1984 Smokeless Tobacco: Never Tobacco Cessation:Ready to Q uit: Yes; Counseling Given: No Alcohol Use Standard Drinks/Week Comments Yes 0 (1 standard drink = 0.6 oz pur e alcohol) rarely AUDIT-C Answer Date Recorded Q1: How often do you have a drink containing alcohol? Never 09/01/2021 Q2: How many drinks containi ng alcohol do you have on a typical day when you are drinking? Patient does not drink Q3: How often do you have si x or more drinks on one occasion? Never 09/01/2021 Hunger Vital Sign Answer Date Recorded Within the past 12 months, y ou worried that your food would run out before you got the money to buy more. Never true 09/03/19 22 Within the past 12 months, t he food you bought just didn't last and you didn't have money to get more. Never true 09/02/2021 Sex and Gender Information Value Date Recorded Sex Assigned at Not on file Gender Identity Not on file Sexual Orientation Not on file Last Filed Vital Signs Vital Sign Reading Time Taken Comments Blood Pressure 133/89 09/02/2021 3:02 PM CDT Pulse 92 09/02/2021 3:02 PM CDT Temperature 36.7 C (98.06 F) 09/02/2021 3:02 PM CDT Respiratory Rate 18 09/02/2021 3:02 PM CDT Oxygen Saturation 100% 09/02/2021 3:02 PM CDT Inhaled Oxygen Concentration - - Weight 102.2 kg (225 lb 3.2 oz) 09/01/2021 7:01 AM CDT Height 170.2 cm (5' 7 ) 09/01/2021 7:01 AM CDT Body Mass Index 35.27 09/01/2021 7:01 AM CDT Plan of Treatment Health Maintenance Due Date Last Done Comments COLOGUARD (AGES 45-75) - COL ON CA SCREENING 1963 COLON MONITORING 1963 COLONOSCOPY - COLON CA SCREENING 1963 CT COLONOGRAPHY - COLON CA SCREENING 1963 Colorectal Cancer Screening 1963 FIT - COLON CA SCREENING 1963 FLEX SIG - COLON CA SCREENING 1963 LIPID TESTING 1963 HIV SCREENING 1978 HEPATITIS C SCREENING 04/20/1981 DTAP/TDAP/TD VACCINES (1 - Tdap) 1982 PNEUMOCOCCAL VACCINE 50+ (1 of 2 - PCV) 1982 PNEUMOCOCCAL VACCINE (1 of 2 - PCV) 1982 ZOSTER VACCINE (1 of 2) 2013 COVID-19 VACCINE (4 - 2023-2 5 season) 2023 03/27/2021, 06/16/2020, 05/19/2020 INFLUENZA VACCINE (#1) 2023 03/27/2021 DEPRESSION SCREENING 02/27/2024 SCREENING FOR DIABETES 08/02/2024 , 04/21/2021 Respiratory Syncytial Virus (RSV) Vaccine Pt: or over 60 yrs (1 - 1-dose 75+ series) 2038 HEPATITIS B VACCINE Aged Out No longe r eligible based on patient's age to complete this topic HIB VACCINE Aged Out No longer eligi ble based on patient's age to complete this topic HPV VACCINE Aged Out No longer eligi ble based on patient's age to complete this topic MENINGOCOCCAL (Group B) VACCINE SHARED DECISION-MAKING Aged Out No longer eligible based on patient's age to complete this topic MENINGOCOCCAL GROUPS A/C/Y/W VACCINE Aged Out No longer eligible b ased on patient's age to complete this topic Medical Devices Implanted Type Area Siene Maker Device Identifier Shelf Expiration Date Model / Serial / Lot Cmnt Bone Djo Srg Cblt 40gm Hvisc Strl Implanted:Qty: 1 on 05/11/2021 by Edouard Deal MD at [facility] Right: Knee [employer] 06/16/2022 600-15-000 / / [id number] Description:with gentamicin Cmnt Bone Djo Srg Cblt 40gm Hvisc Strl Implanted:Qty: 1 on 05/11/2021 by Edouard Deal MD at [facility] Right: Knee [employer] 06/14/2022 600-15-000 / / [id number] Cmpnt Ptlr 31mm 1 Pg Wire Ascnt Arcm Kn Implanted:Qty: 1 on 05/11/2021 by Edouard Deal MD at [facility] Right: Knee [employer] 04/24/2026 [id number] / / [id number] Tray Tib 83mm Kn Cocr I Beam Implanted:Qty: 1 on 05/11/2021 by Edouard Deal MD at [facility] Right: Knee [employer] 01/31/2031 [id number] / / [id number] Cmpnt Fem Kn Rt Cr Cmnt Prm Vngrd Intlk Implanted:Qty: 1 on 05/11/2021 by Edouard Deal MD at [facility] Right: Knee [employer] [id number] / / [id number] Brng [id number] Vngrd Arcm Kn Ant Stab Implanted:Qty: 1 on 05/11/2021 by Edouard Deal MD at [facility] Right: Knee [employer] 12/13/2022 [id number] / / [id number] Tray Tib 79mm Kn Cocr I Beam Implanted:Qty: 1 on 09/01/2021 by Edouard Deal MD at [facility] Left: Knee [employer] 06/20/2031 [id number] / / [id number] Cmpnt Fem Kn Lt Cr Cmnt Prm Vngrd Intlk Implanted:Qty: 1 on 09/01/2021 by Edouard Deal MD at [facility] Left: Knee [employer] 05/25/2031 [id number] / / [id number] Brng [id number] Vngrd Arcm Kn Ant Stab Implanted:Qty: 1 on 09/01/2021 by Edouard Deal MD at [facility] Left: Knee [employer] 07/15/2026 [id number] / / [id number] Cmnt Bone Djo Srg Cblt 40gm Hvisc Strl Implanted:Qty: 1 on 09/01/2021 by Edouard Deal MD at [facility] Left: Knee [employer] 09/08/2022 600-15-000 / / [id number] Cmnt Bone Djo Srg Cblt 40gm Hvisc Strl Implanted:Qty: 1 on 09/01/2021 by Edouard Deal MD at [facility] Left: Knee [employer] 09/08/2022 600-15-000 / / [id number] Cmpnt Ptlr 31mm 1 Pg Wire Ascnt Arcm Kn Implanted:Qty: 1 on 09/01/2021 by Edouard Deal MD at [facility] Left: Knee [employer] 07/29/2026 [id number] / / [id number] Procedures Procedure Name Priority Date/Time Associated Diagnosis Comments COMPREHENSIVE METABOLIC PANEL Routine 08/02/2021 1:30 PM CDT Pre-op evaluation from Last 3 Months or Most Recently Relevant to Health Maintenance Results * (ABNORMAL) COMPREHENSIVE METABOLIC PANEL (08/02/2021 1:30 PM CDT) Glucose 121(H) 70 - 105 mg/dL 08/02/2021 1:57 PM CDT [facility] Sodium 137 136 - 145 mmol/L 08/02/2021 1:57 PM CDT [facility] Potassium 4.6 3.5 - 5.1 mmol/L 08/02/2021 1:57 PM CDT [facility] Chloride 104 98 - 107 mmol/L 08/02/2021 1:57 PM CDT [facility] CO2 25 23 - 31 mmol/L 08/02/2021 1:57 PM CDT [facility] Calcium 9.8 8.4 - 10.4 mg/dL 08/02/2021 1:57 PM CDT [facility] Anion Gap 8 8 - 18 mmol/L 08/02/2021 1:57 PM CDT [facility] BUN 17 8.4 - 25.7 mg/dL 08/02/2021 1:57 PM CDT [facility] Creatinine 0.81 0.72 - 1.25 mg/dL 08/02/2021 1:57 PM CDT [facility] Alkaline Phosphatase 107 40 - 150 U/L 08/02/2021 1:57 PM CDT [facility] ALT 60 0 - 61 U/L 08/02/2021 1:57 PM CDT [facility] AST 25 5 - 34 U/L 08/02/2021 1:57 PM CDT [facility] Protein Total 7.7 6.4 - 8.3 gm/dL 08/02/2021 1:57 PM CDT [facility] Albumin 4.3 3.5 - 5.2 gm/dL 08/02/2021 1:57 PM CDT [facility] Bilirubin Total 0.3 0.2 - 1.2 mg/dL 08/02/2021 1:57 PM CDT [facility] eGFR by CKD-EPI >90 >=90 mL/min/1.7 3 m2 08/02/2021 1:57 PM CDT [facility] Blood BLOOD SPECIMEN / Unknown Venipuncture / Unknown 08/02/2021 1:30 PM CDT 08/02/2021 1:35 PM CDT Mari Cervantes SOFTWARE ENGINEERING SPECIALIST-BARREL TESTER LAB - CHEM ISTRY ORDERABLES [facility] [address] [place] [address] from Last 3 Months or Most Recently Relevant to Health Maintenance Advance Directives * Full Code (Latest Code Status on File) Date Activated Date Inactivated Comments 09/01/2021 11:29 AM 09/02/2021 4:54 PM * Full Code Date Activated Date Inactivated Comments 05/11/2021 12:11 PM 05/12/2021 1:44 PM Care Teams Logistics Planner Relationship Specialty Start Date End Date Ever Burroughs DO Orthopedic Surgery 09/28/14
--- OUTSIDE RECORDS SUMMARY | 2024-05-07 15:35 | XMS_ITS ---
Author Organization [facility] [employer] [facility] Address [address] [place] [address] Care Team Providers Care Lockstitch Sleeve Maker Name Role Phone Elyse Garcia Primary Care Provider [phone] REASON FOR VISIT CPE, F/U sciatica, labs MEDICATIONS Medication SIG (Take, Route, Fr equency, Duration) Notes Start Date End Date Status Percocet 10-325 MG 1 tablet as needed O rally every 6 hrs 10/25/2023 Active Meloxicam 15 MG 1 tablet Orally Once a day for 30 days 10/25/2023 Active Encounters Encounter Location Date Provider Diagnosis [address] [address] 11/08/2023 Elyse Garcia PLAN OF TREATMENT No Information Progress Notes * Theo LEIJ[birth year]OB:[birth year] (59 yo M)Acc No.[id number]:11/08/2023 Patient: Theo LEIJA Provider: Elyse Garcia APRN :1965 Age:58 Y Sex:Male Date:11/08/2023 Address:[address] [facility] Subjective: * Chief Complaints: * 1. CPE, [...]
--- OUTSIDE RECORDS SUMMARY | 2024-05-07 15:35 | XMS_ITS | Patient Health Summary ---
Author Organization [facility] [employer] Address [address] [place] [address] Care Team Providers Care Commercial Property Administrator Name Role Phone Ever Burroughs DO Unavailable [phone] Note from [facility],non-owned Affiliates and Associated Physician Practices is amultiple site organization consisting of ambulatory clinics and hospital sitesin [place], [place], [place] and [place]. This disclosure is being madepursuant to the Care Everywhere program and may not contain all information available regarding this patient. Last updated 17.[facility] [employer] Allergies No known active allergies Medications * Be aware that medications may not be up to date on this document. Alwaysverify current medications with the patient. * diphenhydrAMINE (BENADRYL) 25 MG capsule Take 25 mg by mouth at bedtime Takes nightly for sleep * Multiple Vitamin (MULTIVITAMIN ADULT PO) Take by mouth once daily * [place]-3 Fatty Acids (FISH OIL) 1000 MG capsule Take by mouth once daily * ondansetron (ZOFRAN) 4 MG tablet(Started 09/02/2021) Take 1 (one) tablet by mouth every 6 hours as needed for Nausea/Vomiting * meloxicam (MOBIC) 15 MG tablet(Started 09/02/2021) Take 1 (one) tablet by mouth once daily * oxyCODONE-acetaminophen (PERCOCET) 10-325 MG tablet(Started 09/12/2021) Take 0.5 (one-half) tablet to 1 (one) tablet by mouth every 6 hours as needed for Pain * oxyCODONE-acetaminophen (PERCOCET) 10-325 MG tablet(Started 09/24/2021) Take 0.5 (one-half) tablet to 1 (one) tablet by mouth every 6 hours as needed for Pain Active Problems Problem Noted Date Diagnosed Date [...] Mass Index 35.27 09/01/2021 7:01 AM CDT Medical Devices Implanted Type Area Flower Planter Device Identifier Shelf Expiration Date Model / Serial / Lot Cmnt Bone Djo Srg Cblt 40gm Hvisc Strl Implanted:Qty: 1 on 05/11/2021 by Edouard Deal MD at [facility] Right: Knee [employer] 06/16/2022 600-15-000 / / [id number] Description:with gentamicin Cmnt Bone Djo Srg Cblt 40gm Hvisc Strl Implanted:Qty: 1 on 05/11/2021 by Edouard Deal MD at [facility] Right: Knee [employer] 06/14/2022 600-15-000 / / [id number] Cmpnt Ptlr 31mm 1 Pg Wire Ascnt Arcm Kn Implanted:Qty: 1 on 05/11/2021 by Edouard Deal MD at [facility] Right: Knee [employer] 04/24/2026 [id number] / / [id number] Tray Tib 83mm Kn Cocr I Beam Implanted:Qty: 1 on 05/11/2021 by Edouard Deal MD at [facility] Right: Knee [employer] 01/31/2031 [id number] / / [id number] Cmpnt Fem Kn Rt Cr Cmnt Prm Vngrd Intlk Implanted:Qty: 1 on 05/11/2021 by Edouard Deal MD at [facility] Right: Knee [employer] [id number] / / [id number] Brng [id number] Vngrd Arcm Kn Ant Stab Implanted:Qty: 1 on 05/11/2021 by Edouard Deal MD at [facility] Right: Knee [employer] 12/13/2022 [id number] / / [id number] Tray Tib 79mm Kn Cocr I Beam Implanted:Qty: 1 on 09/01/2021 by Edouard Deal MD at [facility] Left: Knee [employer] 06/20/2031 [id number] / / [id number] Cmpnt Fem Kn Lt Cr Cmnt Prm Vngrd Intlk Implanted:Qty: 1 on 09/01/2021 by Edouard Deal MD at [facility] Left: Knee [employer] 05/25/2031 [id number] / / [id number] Brng [id number] Vngrd Arcm Kn Ant Stab Implanted:Qty: 1 on 09/01/2021 by Edouard Deal MD at [facility] Left: Knee [employer] 07/15/2026 [id number] / / [id number] Cmnt Bone Djo Srg Cblt 40gm Hvisc Strl Implanted:Qty: 1 on 09/01/2021 by Edouard Deal MD at [facility] Left: Knee [employer] 09/08/2022 600-15-000 / / [id number] Cmnt Bone Djo Srg Cblt 40gm Hvisc Strl Implanted:Qty: 1 on 09/01/2021 by Edouard Deal MD at [facility] Left: Knee [employer] 09/08/2022 600-15-000 / / [id number] Cmpnt Ptlr 31mm 1 Pg Wire Ascnt Arcm Kn Implanted:Qty: 1 on 09/01/2021 by Edouard Deal MD at [facility] Left: Knee [employer] 07/29/2026 [id number] / / [id number] Procedures * CARDIAC RHYTHM STRIP ORDER(Performed 09/06/2021) * NEURAXIAL BLOCK(Performed 09/01/2021) * OH TOTAL KNEE REPLACEMENT(Performed 09/01/2021) * COMPREHENSIVE METABOLIC PANEL(Performed 08/02/2021) Performed for Pre-op evaluation * CBC W AUTO DIFFERENTIAL(Performed 08/02/2021) Performed for Pre-op evaluation * XR KNEE RIGHT 3VW(Performed 06/23/2021) Performed for Aftercare following right knee joint replacement surgery * NEURAXIAL BLOCK(Performed 05/11/2021) * OH TOTAL KNEE REPLACEMENT(Performed 05/11/2021) * CBC W AUTO DIFFERENTIAL(Performed 04/21/2021) Performed for Preop examination * COMPREHENSIVE METABOLIC PANEL(Performed 04/21/2021) Performed for Preop examination * EKG 12-LEAD(Performed 04/21/2021) Performed for Preop examination * XR KNEE BILAT 4VW OR MORE(Performed 01/12/2021) Performed for Chronic pain of both knees * XR KNEE BILAT 3VW(Performed 09/28/2014) Performed for Bilateral knee pain Results * CARDIAC RHYTHM STRIP ORDER (09/06/2021 12:08 PM CDT) Narrative 09/06/2021 12:08 PM CDT Ordered by an unspecified provider. Scanned Document CARDIAC SERVICES ORD ERABLES * Neuraxial Block (09/01/2021 8:49 AM CDT) Narrative Bg Mahajan APRN-CRNA - 09/01/2021 8:49 AM CDT Bg Mahajan APRN-CRNA 09/01/2021 9:05 AM Neuraxial Block Note Pre-Procedure: Procedure Name: Neuraxial Block Patient Location: OR Indications: surgical anesthesia Pre-Anesthetic Checklist: Patient identified, IV Checked, Risks and benefits discussed, Surgical consent verified, Monitors and equipment, Site examined, Pre-op evaluation done, Time-out performed, Informed consent obtained, Questions answered/anesthesia questions answered and Allergies reviewed Anticoagulation/ Anti-thrombosis status confirmed? Yes Supplemental O2: face mask Monitors: BP, continuous pluse ox, EKG and End tidal CO2 Patient Condition: awake Patient Sedated? Yes Sedation Type: mild Procedure: Block Type: Spinal Prep: Betadine Sterile Field: sterile gloves, sterile established, mask and cap/hat Approach: midline Skin was localized? Yes Spinal Block: Needle Type: spinal needle Needle Gauge: 22 Needle Length: 90 mm Placement Site: L3-4 Number of Attempts: 2 CSF: aspiration before injection, free flow, aspiration after injection Local anesthetics used? Yes Degree of difficulty: none Procedure Tolerance: tolerated well Sensory Level: other - please comment (adequate) Motor Blockade: Yes Position post procedure: supine Vital Signs: Vital signs monitored and stable throughout. See anesthesia record for details. Staff: Anesthesia Provider: Rosana Landon DO Provider #1: Bg Mahajan APRN-CRNA - performed the procedure Provider #2: Medina Reis RN Additional Notes: One attempt SRNA One attempt SYSTEMS INTEGRATION MANAGER Rosana Landon DO GENERAL ANESTHESIA O RDERABLES * CBC W AUTO DIFFERENTIAL (08/02/2021 1:30 PM CDT) Only the most recent of2 resultswithin the time period is included. [facility] WBC 8.0 4.4 - 10.7 x10E9/L 08/02/2021 1:37 PM CDT [facility] WBC Corrected 08/02/2021 1:37 PM CDT [facility] RBC 5.05 3.80 - 5.40 x10E12/L 08/02/2021 1:37 PM CDT [facility] Hemoglobin 15.5 12.0 - 17.6 gm/dL 08/02/2021 1:37 PM CDT [facility] Hematocrit 46.0 35.2 - 51.7 % 08/02/2021 1:37 PM CDT [facility] MCV 91.1 80.7 - 98.3 fl 08/02/2021 1:37 PM CDT [facility] MCH 30.7 26.7 - 34.0 pg 08/02/2021 1:37 PM CDT [facility] MCHC 33.7 30.8 - 35.9 gm/dL 08/02/2021 1:37 PM CDT [facility] Platelet Count 218 153 - 416 x10E9/L 08/02/2021 1:37 PM CDT [facility] RDW-CV 13.3 12.1 - 14.9 % 08/02/2021 1:37 PM CDT [facility] MPV 10.4 9.4 - 12.9 fl 08/02/2021 1:37 PM CDT [facility] Neutrophils % 62.9 44.0 - 73.0 % 08/02/2021 1:37 PM CDT [facility] Lymphocytes % 30.3 20.0 - 43.0 % 08/02/2021 1:37 PM CDT [facility] Monocytes % 5.9 5.0 - 13.0 % 08/02/2021 1:37 PM CDT [facility] Eosinophils % 0.5 0.0 - 6.0 % 08/02/2021 1:37 PM CDT [facility] Basophils % 0.2 0.0 - 2.0 % 08/02/2021 1:37 PM CDT [facility] Immature Granulocytes 0.2 0 - 1 % 08/02/2021 1:37 PM CDT [facility] Neutrophil Absolute 5.05 2.01 - 7.14 x10E9/L 08/02/2021 1:37 PM CDT [facility] Lymphocytes Absolute 2.43 1.07 - 3.94 x10E9/L 08/02/2021 1:37 PM CDT [facility] Monocytes Absolute 0.47 0.26 - 1.07 x10E9/L 08/02/2021 1:37 PM CDT [facility] Eosinophils Absolute 0.04 0 - 0.47 x10E9/L 08/02/2021 1:37 PM CDT [facility] Basophils Absolute 0.02 0 - 0.08 x10E9/L 08/02/2021 1:37 PM CDT [facility] Immature Granulocytes Absolute 0.02 0.00 - 0.06 x10E9/L 08/02/2021 1:37 PM CDT [facility] nRBC Auto 0 /100 WBC 08/02/2021 1:37 PM CDT [facility] Blood BLOOD SPECIMEN / Unknown Venipuncture / Unknown 08/02/2021 1:30 PM CDT 08/02/2021 1:35 PM CDT Mari Cervantes INSTRUMENTATION AND CONTROLS DESIGNER-SPECIALTIES OPERATOR LAB - HARJIT TOLOGY ORDERABLES [facility] [address] [place] [address] * (ABNORMAL) COMPREHENSIVE METABOLIC PANEL (08/02/2021 1:30 PM CDT) Only the most recent of2 resultswithin the time period is included. Glucose 121(H) 70 - 105 mg/dL 08/02/2021 1:57 PM CDT [facility] Sodium 137 136 - 145 mmol/L 08/02/2021 1:57 PM CDT [facility] Potassium 4.6 3.5 - 5.1 mmol/L 08/02/2021 1:57 PM CDT [facility] Chloride 104 98 - 107 mmol/L 08/02/2021 1:57 PM CDT [facility] CO2 25 23 - 31 mmol/L 08/02/2021 1:57 PM CDT [facility] Calcium 9.8 8.4 - 10.4 mg/dL 08/02/2021 1:57 PM CDT [facility] Anion Gap 8 8 - 18 mmol/L 08/02/2021 1:57 PM CDT [facility] BUN 17 8.4 - 25.7 mg/dL 08/02/2021 1:57 PM CDT [facility] Creatinine 0.81 0.72 - 1.25 mg/dL 08/02/2021 1:57 PM CDT [facility] Alkaline Phosphatase 107 40 - 150 U/L 08/02/2021 1:57 PM CDT [facility] ALT 60 0 - 61 U/L 08/02/2021 1:57 PM CDT [facility] AST 25 5 - 34 U/L 08/02/2021 1:57 PM CDT [facility] Protein Total 7.7 6.4 - 8.3 gm/dL 08/02/2021 1:57 PM CDT [facility] Albumin 4.3 3.5 - 5.2 gm/dL 08/02/2021 1:57 PM CDT [facility] Bilirubin Total 0.3 0.2 - 1.2 mg/dL 08/02/2021 1:57 PM CDT [facility] eGFR by CKD-EPI >90 >=90 mL/min/1.7 3 m2 08/02/2021 1:57 PM CDT [facility] Blood BLOOD SPECIMEN / Unknown Venipuncture / Unknown 08/02/2021 1:30 PM CDT 08/02/2021 1:35 PM CDT Mari Cervantes INSTRUMENTATION AND CONTROLS DESIGNER-SPECIALTIES OPERATOR LAB - CHEM ISTRY ORDERABLES Performing Organization Address City/State/[facility] Co de Phone Number [facility] [address] [place] [address] * XR KNEE RIGHT 3VW (06/23/2021 2:24 PM CDT) Anatomical Region Laterality Modality Lower Extremity Computed Radiogr aphy Narrative 06/23/2021 2:25 PM CDT Ericka Fry 06/24/2021 11:42 AM Please see progress notes for result. Clair Mai PA-C DIAGNOSTIC IM AGING ORDERABLES * Neuraxial Block (05/11/2021 8:37 AM CDT) Narrative Apollo Lora MD - 05/11/2021 8:37 AM CDT Theo Melendez APRN-CRNA 05/11/2021 8:42 AM Neuraxial Block Note Pre-Procedure: Procedure Name: Neuraxial Block Patient Location: OR Referred By: Say. Indications: surgical anesthesia Pre-Anesthetic Checklist: Patient identified, IV Checked, Risks and benefits discussed, Surgical consent verified, Monitors and equipment, Site examined, Pre-op evaluation done, Time-out performed, Informed consent obtained, Questions answered/anesthesia questions answered and Allergies reviewed Anticoagulation/ Anti-thrombosis status confirmed? Yes Supplemental O2: face mask Patient Condition: sedated, meaningful contact maintained throughout procedure Patient Sedated? Yes Sedation Type: moderate Sedation Agents: fentaNYL (PF) (SUBLIMAZE) injection, 75 mcg midazolam (VERSED) injection, 2 mg Procedure: Block Type: Spinal Prep: Betadine Sterile Field: mask, cap/hat, sterile established and sterile gloves Approach: midline Skin was localized? Yes Skin localized with: lidocaine (XYLOCAINE) 1 % injection, 3 mL Spinal Block: Needle Type: spinal needle Needle Gauge: 25 Needle Length: 90 mm Placement Site: L3-4 Number of Attempts: 1 CSF: free flow, aspiration before injection Local anesthetics used? Yes Spinal local anesthetics/Additives: fentaNYL (PF) (SUBLIMAZE) injection, 25 mcg Degree of difficulty: moderate Procedure Tolerance: tolerated well Sensory Level: T7 Motor Blockade: Yes Position post procedure: supine Vital Signs: Vital signs monitored and stable throughout. See anesthesia record for details. Start Time: 05/11/2021 8:15 AM End Time: 05/11/2021 8:20 AM Total Time: 5 Staff: Anesthesia Provider: Theo Melendez APRN-CRNA - performed the procedure Apollo Lora MD GENERAL ANESTHESIA O CURTIS * EKG 12-LEAD (04/21/2021 7:11 AM CHILD CARE COUNSELOR) Ventricular Rate 72 BPM [facility] Atrial Rate 72 BPM [facility] P-R Interval 136 ms [facility] QRS Duration ms 86 ms [facility] Q-T Interval ms 386 ms [facility] QTC Calculation (Bezet) 422 ms [facility] Calculated P [place] 60 degrees [facility] Calculated R [place] 57 degrees [facility] Calculated T [place] 51 degrees [facility] Interpretation EKG Normal sinus rhythm Normal ECG No previous ECGs available Confirmed by ANISH BURRIS, SALLIE SMITH ([id number]) on 04/21/2021 7:38:48 AM [facility] 04/21/2021 7:11 AM CHILD CARE COUNSELOR 04/21/2021 7:38 AM CHILD CARE COUNSELOR Rosana Landon DO ECG ORDERABLES [facility] * XR KNEE BILAT 4VW OR MORE (01/12/2021 10:40 AM CHILD CARE COUNSELOR) Anatomical Region Laterality Modality Lower Extremity Computed Radiogr aphy Narrative 01/12/2021 10:45 AM CHILD CARE COUNSELOR Bharati Askew RT(R) 01/17/2021 7:16 AM See progress notes for results Mike Heard MD DIAGNOSTIC IMAGING O RDERABLES * XR KNEE BILAT 3 VIEWS (09/28/2014 2:45 PM CDT) Anatomical Region Laterality Modality Lower Extremity Radiographic Alice ging Narrative 09/28/2014 5:16 PM CDT Manuela Corado RT(R) 09/28/2014 5:16 PM Please see office note for result. Elia Burkett MD DIAGNOSTIC IMAGING O RDERABLES Care Teams Commercial Property Administrator Relationship Specialty Start Date End Date Ever Burroughs DO Orthopedic Surgery 09/28/14
--- OUTSIDE RECORDS SUMMARY | 2024-05-07 15:35 | XMS_ITS | Referral Summary ---
Author Organization [facility] [employer] Address [address] [place] [address] Care Team Providers Care Value Stream Leader Name Role Phone Ever Burroughs DO Unavailable [phone] Source Comments [facility] [employer],non-owned Affiliates and Associated Physician Practices is amultiple site organization consisting of ambulatory clinics and hospital sitesin [place], [place], [place] and [place]. This disclosure is being madepursuant to the Care Everywhere program and may not contain all information available regarding this patient. Last updated 17.[employer] Allergies No known active allergies Medications * Be aware that medications may not be up to date on this document. Alwaysverify current medications with the patient. Medication Sig Dispensed Refills Start Date End Date Status diphenhydrAMINE (BENADRYL) 25 MG capsule Take 25 mg by mouth at bedtime Takes nightly for sleep Active Multiple Vitamin (MULTIVITAMIN ADULT PO) Take by mouth once daily Active [place]-3 Fatty Acids (FISH OIL) 1000 MG capsule [...] Mass Index 35.27 09/01/2021 7:01 AM CDT Functional Status Functional Status Response Date of Assess ment Is person deaf or have serious hearing difficult y? No 09/02/2021 Is person blind or have serious difficulty seein g? No 09/02/2021 Does person have serious dif ficulty walking/climbing stairs? Yes 09/02/2021 Does person have difficulty dressing/bathing? Ye s 09/02/2021 Does person have difficulty doing errands alone? Yes 09/02/2021 Cognitive Status Response Date of Assessm ent Does person have difficulty concentrating/remembering/making decisions? No 09/02/2021 Plan of Treatment Not on file Medical Devices Implanted Type Area Lead Assistant Manager Device Identifier Shelf Expiration Date Model / Serial / Lot Cmnt Bone Djo Srg Cblt 40gm Hvisc Strl Implanted:Qty: 1 on 05/11/2021 by Edouard Deal MD at [facility] Right: Knee [employer] 06/16/2022 600-15-000 / / [id number] Description:with gentamicin Cmnt Bone Djo Srg Cblt 40gm Hvisc Strl Implanted:Qty: 1 on 05/11/2021 by Edouard Deal MD at [facility] Right: Knee [employer] 06/14/2022 600-15-000 / / [id number] Cmpnt Ptlr 31mm 1 Pg Wire Ascnt Arcm Kn Implanted:Qty: 1 on 05/11/2021 by Edouard Deal MD at [facility] Right: Knee [employer] 04/24/2026 [id number] / / [id number] Tray Tib 83mm Kn Cocr I Beam Implanted:Qty: 1 on 05/11/2021 by Edouard Deal MD at [facility] Right: Knee [employer] 01/31/2031 [id number] / / [id number] Cmpnt Fem Kn Rt Cr Cmnt Prm Vngrd Intlk Implanted:Qty: 1 on 05/11/2021 by Edouard Deal MD at [facility] Right: Knee [employer] [id number] / / [id number] Brng [id number] Vngrd Arcm Kn Ant Stab Implanted:Qty: 1 on 05/11/2021 by Edouard Deal MD at [facility] Right: Knee [employer] 12/13/2022 [id number] / / [id number] Tray Tib 79mm Kn Cocr I Beam Implanted:Qty: 1 on 09/01/2021 by Edouard Deal MD at [facility] Left: Knee [employer] 06/20/2031 [id number] / / [id number] Cmpnt Fem Kn Lt Cr Cmnt Prm Vngrd Intlk Implanted:Qty: 1 on 09/01/2021 by Edouard Deal MD at [facility] Left: Knee [employer] 05/25/2031 [id number] / / [id number] Brng [id number] Vngrd Arcm Kn Ant Stab Implanted:Qty: 1 on 09/01/2021 by Edouard Deal MD at [facility] Left: Knee [employer] 07/15/2026 [id number] / / [id number] Cmnt Bone Djo Srg Cblt 40gm Hvisc Strl Implanted:Qty: 1 on 09/01/2021 by Edouard Deal MD at [facility] Left: Knee [employer] 09/08/2022 600-15-000 / / [id number] Cmnt Bone Djo Srg Cblt 40gm Hvisc Strl Implanted:Qty: 1 on 09/01/2021 by Edouard Deal MD at [facility] Left: Knee [employer] 09/08/2022 600-15-000 / / [id number] Cmpnt Ptlr 31mm 1 Pg Wire Ascnt Arcm Kn Implanted:Qty: 1 on 09/01/2021 by Edouard Deal MD at [facility] Left: Knee [employer] 07/29/2026 [id number] / / [id number] Procedures Procedure Name Priority Date/Time Associated Diagnosis Comments COMPREHENSIVE METABOLIC PANEL Routine 08/02/2021 1:30 PM CDT Pre-op evaluation from Last 3 Months or Most Recently Relevant to Health Maintenance Results * (ABNORMAL) COMPREHENSIVE METABOLIC PANEL (08/02/2021 1:30 PM CDT) [facility] Glucose 121(H) 70 - 105 mg/dL 08/02/2021 1:57 PM CDT [facility] Sodium 137 136 - 145 mmol/L 08/02/2021 1:57 PM CDT [facility] Potassium 4.6 3.5 - 5.1 mmol/L 08/02/2021 1:57 PM CDT [facility] Chloride 104 98 - 107 mmol/L 08/02/2021 1:57 PM CDT [facility] CO2 25 23 - 31 mmol/L 08/02/2021 1:57 PM CDT [facility] Calcium 9.8 8.4 - 10.4 mg/dL 08/02/2021 1:57 PM CDT [facility] Anion Gap 8 8 - 18 mmol/L 08/02/2021 1:57 PM CDT [facility] BUN 17 8.4 - 25.7 mg/dL 08/02/2021 1:57 PM CDT [facility] Creatinine 0.81 0.72 - 1.25 mg/dL 08/02/2021 1:57 PM CDT [facility] Alkaline Phosphatase 107 40 - 150 U/L 08/02/2021 1:57 PM CDT [facility] ALT 60 0 - 61 U/L 08/02/2021 1:57 PM CDT [facility] AST 25 5 - 34 U/L 08/02/2021 1:57 PM CDT [facility] Protein Total 7.7 6.4 - 8.3 gm/dL 08/02/2021 1:57 PM CDT [facility] Albumin 4.3 3.5 - 5.2 gm/dL 08/02/2021 1:57 PM CDT [facility] Bilirubin Total 0.3 0.2 - 1.2 mg/dL 08/02/2021 1:57 PM CDT [facility] eGFR by CKD-EPI >90 >=90 mL/min/1.7 3 m2 08/02/2021 1:57 PM CDT [facility] Blood BLOOD SPECIMEN / Unknown Venipuncture / Unknown 08/02/2021 1:30 PM CDT 08/02/2021 1:35 PM CDT Mari Cervantes CAREER TECHNICAL EDUCATION INSTRUCTOR-TRANSFER WORKER LAB - CHEM ISTRY ORDERABLES [facility] [address] [place] [address] from Last 3 Months or Most Recently Relevant to Health Maintenance Administered Medications Advance Directives * Full Code (Latest Code Status on File) Date Activated Date Inactivated Comments 09/01/2021 11:29 AM 09/02/2021 4:54 PM * Full Code Date Activated Date Inactivated Comments 05/11/2021 12:11 PM 05/12/2021 1:44 PM Care Teams Value Stream Leader Relationship Specialty Start Date End Date Ever Burroughs DO Orthopedic Surgery 09/28/14
--- OUTSIDE RECORDS SUMMARY | 2024-05-07 15:35 | XMS_ITS ---
Author Organization [facility] [employer] [facility] Address [address] [place] [address] Care Team Providers Care Power Engineer Name Role Phone Elyse Garcia Primary Care Provider REASON FOR VISIT Right knee pain, has replacement joint Encounters Encounter Location Date Provider Diagnosis [facility] [address] [place] [address] 10/23/2023 Elyse Garcia PLAN OF TREATMENT No Information Progress Notes * Theo LEIJADOB:[birth year] (59 yo M)Acc No.[id number]:10/23/2023 Patient: Theo LEIJA Provider: Elyse Garcia APRN :1965 Age:58 Y Sex:Male Date:10/23/2023 Address:[address] [facility] Subjective: * Chief Complaints: * 1. Right [...]
--- OUTSIDE RECORDS SUMMARY | 2024-05-07 15:35 | XMS_ITS ---
Author Organization BILLING FACILITY [employer] [facility] Address [address] [place] [address] Care Team Providers Care Wellness Program Administrator Name Role Phone Elyse Garcia Primary Care Provider [phone] ALLERGIES No Known Allergies REASON FOR [...] Problem Shingles (B02.9) Active confirmed Shing les (1350239) Problem Osteoarthritis (M19.90) Active confirmed Osteoarthritis (582723679) VITAL SIGNS Temperature 97.7 degrees Fahrenheit 10/25/19 Heart Rate 97 /min 10/25/2023 Oximetry 97 % 10/25/2023 Blood pressure systolic 122 mm Hg 10/25/19 24 Blood pressure diastolic 76 mm Hg 024 Weight 224.2 lbs 10/25/2023 Height 67 in 10/25/2023 BMI 35.11 10/25/2023 Weight-kg 101.7 kg 10/25/2023 Encounters Encounter Location Date Provider Diagnosis [facility] [address] [place] [address] 10/25/2023 Elyse Garcia Sciatica, right side M54.31 [...] * Theo CARVALHODOB:[birth year] (58 yo M)Acc No.[id number]:10/25/2023 Patient: Theo CARVALHO Provider: Elyse Garcia APRN :1965 Age:58 Y Sex:Male Date:10/25/2023 Address:[address] , [facility] Subjective: * Chief Complaints: * Right knee [...] work right before this pain started. 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 Lockwood at [facility] - Hx R TKR 2021, 3 months [...] Surgical History: orthopedic surgeon Dr. Lockwood at [facility] - Hx R TKR, 3 months later [...] tdap?) * Billing Information: * Visit Code: 99909 Level 4 New Patient Acute Care. * [...]
--- OUTSIDE RECORDS SUMMARY | 2024-05-07 15:39 | XMS_ITS | Referral Summary ---
Author Organization [facility] Address [facility] [place] [address] Care Team Providers Care Bull Riveter Name Role Phone No, Physician Primary Care Provider [phone] Allergies No known active allergies Medications meloxicam (MOBIC) 15 mg tablet 07/14/2020 Active Active Problems No known active problems Social History Tobacco Use Types Packs/Day Years Used Date Smoking Tobacco: Every Day Cigarettes Smokeless Tobacco: Never Personal Safety Answer Date Recorded Getting School Help Needed Not on file 04/21 Sex and Gender Information Value Date Recorded Sex Assigned at Not on file Legal Sex Male 1:49 AM LIBRARY CLERICAL ASSISTANT Gender Identity Not on file Sexual Orientation Not on file Last Filed Vital Signs Vital Sign Reading Time Taken Comments Blood Pressure 120/80 01/22/2018 3:15 PM LIBRARY CLERICAL ASSISTANT Pulse 88 01/22/2018 3:15 PM LIBRARY CLERICAL ASSISTANT Temperature - - Respiratory Rate - - Oxygen Saturation 98% 01/22/2018 3:15 PM LIBRARY CLERICAL ASSISTANT Inhaled Oxygen Concentration - - Weight 103 kg (227 lb) 01/22/2018 3:15 PM LIBRARY CLERICAL ASSISTANT Height 171.5 cm (5' 7.5 ) 01/22/2018 3:15 PM LIBRARY CLERICAL ASSISTANT Body Mass Index 35.03 01/22/2018 3:15 PM LIBRARY CLERICAL ASSISTANT Plan of Treatment Not on file Insurance [facility] Care Teams Bull Riveter Relationship Specialty Start Date End Date No, Physician PCP - General 07/12/20
--- OUTSIDE RECORDS SUMMARY | 2024-05-07 15:39 | XMS_ITS | Clinical Summary ---
Author Organization [facility] Address [facility] [place] [address] Care Team Providers Care Railroad Auditor Name Role Phone No, Physician Primary Care Provider [phone] Allergies No known active allergies Medications meloxicam (MOBIC) 15 mg tablet 07/14/2020 Active Active Problems No known active problems Medical History Medical History Date Comments Kidney stone Family History Medical History Relation Name Comments Arthritis Father Arthritis Mother Cancer Mother Relation Name Status Comments Father Mother Social History Tobacco Use Types Packs/Day Years Used Date Smoking Tobacco: Every Day Cigarettes Smokeless Tobacco: Never Personal Safety Answer Date Recorded Getting School Help Needed Not on file 04/21 Sex and Gender Information Value Date Recorded Sex Assigned at Not on file Legal Sex Male 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 Gender Identity Not on file Sexual Orientation Not on file Obstetrics History Last Filed Vital Signs Vital Sign Reading Time Taken Comments Blood Pressure 120/80 01/22/2018 3:15 PM SCRAP YARD WORKER Pulse 88 01/22/2018 3:15 PM SCRAP YARD WORKER Temperature - - Respiratory Rate - - Oxygen Saturation 98% 01/22/2018 3:15 PM SCRAP YARD WORKER Inhaled Oxygen Concentration - - Weight 103 kg (227 lb) 01/22/2018 3:15 PM SCRAP YARD WORKER Height 171.5 cm (5' 7.5 ) 01/22/2018 3:15 PM SCRAP YARD WORKER Body Mass Index 35.03 01/22/2018 3:15 PM SCRAP YARD WORKER Plan of Treatment Not on file Insurance R [facility] Care Teams Railroad Auditor Relationship Specialty Start Date End Date No, Physician PCP - General 07/12/20
== END 2024-05-07 14:11 | disposition home or self-care (01) ==
PROVIDERS: Emergency Provider Nurse Practitioner Family; Referring Provider Emergency Medicine
DX: J40 Bronchitis, not specified as acute or chronic (principal); Z87.891 Personal history of nicotine dependence; F12.90 Cannabis use, unspecified, uncomplicated; Z96.651 Presence of right artificial knee joint
CPT/HCPCS: 99213; G0463

== ENCOUNTER 2024-12-19 13:55 | Emergency (ER) | payer OTHER, SELFPAY ==
--- OUTSIDE RECORDS SUMMARY | 2023-10-23 11:00 | XMS_ITS ---
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 Right knee pain, has replacement joint. * Medical History: Objective: Assessment: Plan: * Treatment: * Billing Information: * Visit Code: * Procedure Codes: * The named appointment provid er may or may not be the originator of this progress note, and it is not deemed complete until electronically signed by the appointment provider. Sign off status: Pending * Provider: Elyse Garcia APRN Date: 10/23/2023
--- OUTSIDE RECORDS SUMMARY | 2023-10-25 10:05 | XMS_ITS ---
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 Phone Elyse Garcia Primary Care Provider [phone] ALLERGIES No Known Allergies REASON FOR VISIT Right knee and calf pain, TKR 2021 MEDICATIONS Medication SIG (Take, Route, Fr equency, Duration) Notes Start Date End Date Status Percocet 10-325 MG 1 tablet as needed O rally every 6 hrs 10/25/2023 Active Meloxicam 15 MG 1 tablet Orally Once a day for 30 days 10/25/2023 Active SOCIAL HISTORY Tobacco Use: Social History Observation Description Date Details (start date - stop date) Current Smoker 07/27/1981 - NA Sex Assigned At : Social History Observation Description Sex Assigned At Unknown Tobacco Use/Smoking Question Answer Notes Are you a current user When did you start using? 07/27/1981 How often do you smoke cigarettes? every day How many cigarettes a day do you smoke? 6-10 How soon after you wake up d o you smoke your first cigarette? 31-60 minutes Are you interested in quitting? Thinking about q uitting Alcohol Questionnaire Question Answer Notes Did you have a drink contain ing alcohol in the past year? Yes How often did you have a dri nk containing alcohol in the past year? Monthly or less (1 point) How many drinks did you have on a typical day when you were drinking in the past year? 1 or 2 drinks (0 point) How often did you have 6 or more drinks on one occasion in the past year? Never (0 point) Points 1 Interpretation Negative PROBLEMS Problem Type ICD Code Onset Dates Problem Status W/U Status Risk SNOMED Code Notes Problem Shingles (B02.9) Active confirmed Shing les (3800712) Problem Osteoarthritis (M19.90) Active confirmed Osteoarthritis (840068277) VITAL SIGNS Temperature 97.7 degrees Fahrenheit 10/25/19 Heart Rate 97 /min 10/25/2023 Oximetry 97 % 10/25/2023 Blood pressure systolic 122 mm Hg 10/25/19 24 Blood pressure diastolic 76 mm Hg 024 Weight 224.2 lbs 10/25/2023 Height 67 in 10/25/2023 BMI 35.11 10/25/2023 Weight-kg 101.7 kg 10/25/2023 Encounters Encounter Location Date Provider Diagnosis [facility] [address] [place] [address] 10/25/2023 Elyse Garcia Sciatica, right side M54.31 ASSESSMENTS Encounter Date Diagnosis Assessment Notes Treatment Notes Treatment Clinical Notes Section Notes 10/25/2023 Sciatica, right side (ICD-10 - M54.31) Will have pt start with conservative tx for R sciatica - home stretching exercises, NSAID as rx'd, OTC topicals PRN such as Biofreeze, Salonpas patch, etc if helpful. Advised to avoid all other NSAIDs outside of Rx'd meloxicam. Take w/food daily. Ok to add acetaminophen PRN for additional pain relief. Pt reports he does not like steroids (jittery/anxious SE) and wishes to avoid these. Advised not to take Rx from others, caution driving/working with meds and simultaneous use of medications/drugs such as marijuana, opioids (percocet), muscle relaxants, ETOH, etc. UTD handout printed and provided. Start medications as discussed/dispens ed.Call for any changes or further concerns, RTC 2 wks for f/u.Consider PT vs imaging vs referral for persistent ssx. PLAN OF TREATMENT Medication Medication Name Sig Start Date Stop Date Notes Meloxicam 15 MG 1 tablet Orally Once a day for 30 days Next Appt Details Follow Up: 2 Weeks, Reason: CPE, sciatica, labs, tdap? Progress Notes * Theo CARVALHODOB:[birth year] (58 yo M)Acc No.[id number]:10/25/2023 Patient: Theo CARVALHO Provider: Elyse Garcia APRN :1965 Age:58 Y Sex:Male Date:10/25/2023 Address:[address] , [facility] Subjective: * Chief Complaints: * Right knee and calf pain, TKR 2021 * HPI: *: Pt presents with C/O R back and leg pain. X 2-3 weeks. B ack of R leg starting at buttocks, shoots down to calf sometimes skipping back of thigh. F requent but not constant. S harp, shooting, muscle cramp sensation as well. No falls, tripping, injury, recent trauma. Did hold awkward angled position for several hours using equipment at work right before this pain started. 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 Denies numbness and tingling. W orse after being sedentary or still for extended time - ie getting out of bed or starting to walk after standing too long. B juanjo with movement and walking but never relieved. T reatment - Naproxen last weekend helped knock pain down slightly. Rented a scooter while at [employer] a few weeks ago to avoid or limit walking. Back patch gave him recently was helpful. Did try family member's muscle relaxant (unsure name/dose) which only made him sleepy. Does smoke MJ daily after work which helps with overall body pain and for relaxation. Has a couple tabs leftover Percocet 10-325 from post-op in 2021 bilateral knee replacements but hasn't used at all. S everity - pt cannot give rating but states he's walking fine, not dragging leg, tripping, or falling. P CP: none. Last was childhood. S pecialists: orthopedic surgeon Dr. Lockwood at [facility] - Hx R TKR 2021, 3 months later L TKR completed. Completed PT program for both knees. * ROS: General/Constitutional: General Denies:, chills, fatigue, fever. Cardiovascular DENIES: , chest pain or tightness, irregular heartbeat, palpitations. Respiratory DENIES: , cough, shortness of breath, wheezing. Gastrointestinal DENIES: , abdominal pain, constipation, diarrhea, nausea, vomiting. Genitourinary DENIES: , dysuria, polyuria. Skin DENIES: , concerning/changing lesions, itching, rash. Musculoskeletal REPORTS: CHRONIC GENERALIZED OSTEOARTHRITIC PAIN, JOINT STIFFNESS AND RESTRICTED MOTION (SHOULDERS, HIPS, ELBOWS, FINGERS, SPINE), SHARP SHOOTING PAIN FROM RIGHT POSTERIOR HIP TO POSTERIOLATERAL CALF., DENIES: falls, numbness, tingling, bony deformity, leg cramps, gait problems. Peripheral Vascular DENIES: , claudication, varicose veins. Neurologic DENIES: , dizziness, headache, weakness. Psychiatric DENIES:, anxiety, depressed mood, sleep problems, substance abuse, suicidal thoughts. * Medical History: * Surgical History: orthopedic surgeon Dr. Lockwood at [facility] - Hx R TKR, 3 months later L TKR completed. 2021 * Hospitalization/Major Diagno stic Procedure: * Social History: Tobacco Use: Tobacco Use/Smoking Are you a current user When did you start using? 07/27/1981 How often do you smoke cigarettes? every day How many cigarettes a day do you smoke? - How soon after you wake up do you smoke your first cigarette? 31-60 minutes Are you interested in quitting? Thinking about quitting Habits (drugs/alcohol/caffeine): Alcohol Questionnaire Did you have a drink containing alcohol in the past year? Yes How often did you have a drink containing alcohol in the past year? Monthly or less (1 point) How many drinks did you have on a typical day when you were drinking in the past year? 1 or 2 drinks (0 point) How often did you have 6 or more drinks on one occasion in the past year? Never (0 point) Points 1 Interpretation Negative Drugs Have you used drugs other than for medical reasons? Yes Drug(s) used marijuana Route inhalation, smoking, oral Are you still using? Yes Do you want treatment? No Are you in a treatment program? No Have ever injected drugs? in youth injected steroids Are there minors (18 years or younger) at risk at home? No * Medications: TakingPercocet 10-325 MG Tablet 1 tablet as needed Orally every 6 hrs (few tabs leftover from TKR surgery)Medication List reviewed and reconciled with the patientTaking Percocet 10-325 MG Tablet 1 tablet as needed Orally every 6 hrs (few tabs leftover from TKR surgery)Medication List reviewed and reconciled with the patient * Allergies: N.K.A.no[Allergies Verified] Objective: * Vitals: Temp:97.7F, HR:97, Oxygen sat:97%, BP:122/76mm Hg, Wt:224.2lbs, Ht:67in, BMI:35.11, Wt-k.7 kg. * Examination: General Examination *: GENERAL APPEARANCE: alert and oriented, no acute distress, pleasant, interacting appropriately, well nourished, obese, short statured, ambulating without difficulty. HEAD: atraumatic, normocephalic. HEART: S1/S2 normal, regular rate and rhythm, no murmurs, no rubs, no gallops. LUNGS: clear to auscultation, diminished a ir movement in bilateral bases, no respiratory distress, no cough or wheeze. BACK: No tenderness to palpation of the lumbosacral spine. No tenderness to palpation of the lumbosacral paraspinal area. No SI or sciatic notch tenderness. LUMBAR PARASPINAL MUSCULATURE TENSION NOTED WORSE TO RIGHT. REDUCED ROM OF LUMBOSACRAL SPINE without pain. Normal strength of BLE proximally and distally. Normal sensation to light touch BLE proximally and distally. POSITIVE SLR TEST LEFT SIDE PRODUCING PAIN TO RIGHT. Negative SLR right side. N o CVA tenderness. NEUROLOGIC: alert, cooperative, moving all extremities spontaneously, non-focal. MUSCULOSKELETAL: GENERALIZED ARTHRITIC CHANGES AND REDUCED ROM NOTED. PT CANNOT FULLY STRAIGHTEN ARMS, DOES NOT HAVE FULL ROM TO SHOULDERS. No joint effusions or erythema. H ip: No obvious deformity. No trochanteric tenderness to palpation. Normal ROM of the hip without pain. Normal hip strength.. PSYCH: affect normal, cognitive function intact, mood normal, *SPEECH/LANGUAGE, clear. Assessment: * Assessment: 1. Sciatica, right side - M54.31 (Primary) Plan: * Treatment: * Procedure Codes: * Follow Up: 2 Weeks (Reason: CPE, sciatica, labs, tdap?) * Billing Information: * Visit Code: 34364 Level 4 New Patient Acute Care. * Procedure Codes: * Sign off status: Completed true * Provider: Elyse Garcia APRN Date: 10/25/2023 History and Physical Notes * Examination Category Sub-Category Detail Notes Category Not es General Examination * GENERAL APPEARANCE: alert and oriented, no acute distress, pleasant, interacting appropriately, well nourished, obese, short statured, ambulating without difficulty HEAD: atraumatic, normocep halic HEART: S1/S2 normal, regula r rate and rhythm, no murmurs, no rubs, no gallops LUNGS: clear to auscultatio n, diminished air movement in bilateral bases, no respiratory distress, no cough or wheeze BACK: No tenderness to pal pation of the lumbosacral spine. No tenderness to palpation of the lumbosacral paraspinal area. No SI or sciatic notch tenderness. LUMBAR PARASPINAL MUSCULATURE TENSION NOTED WORSE TO RIGHT. REDUCED ROM OF LUMBOSACRAL SPINE without pain. Normal strength of BLE proximally and distally. Normal sensation to light touch BLE proximally and distally. POSITIVE SLR TEST LEFT SIDE PRODUCING PAIN TO RIGHT. Negative SLR right side. No CVA tenderness MUSCULOSKELETAL: GENERALIZED ARTHRITI C CHANGES AND REDUCED ROM NOTED. PT CANNOT FULLY STRAIGHTEN ARMS, DOES NOT HAVE FULL ROM TO SHOULDERS. No joint effusions or erythema. Hip: No obvious deformity. No trochanteric tenderness to palpation. Normal ROM of the hip without pain. Normal hip strength. NEUROLOGIC: alert, cooperative, moving all extremities spontaneously, non-focal PSYCH: affect normal, cogni tive function intact, mood normal, *SPEECH/LANGUAGE, clear
--- OUTSIDE RECORDS SUMMARY | 2023-11-08 10:00 | XMS_ITS ---
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 Role Phone Elyse Garcia Primary Care Provider [phone] REASON FOR VISIT CPE, F/U sciatica, labs MEDICATIONS Medication SIG (Take, Route, Fr equency, Duration) Notes Start Date End Date Status Percocet 10-325 MG 1 tablet as needed O rally every 6 hrs 10/25/2023 Active Meloxicam 15 MG 1 tablet Orally Once a day for 30 days 10/25/2023 Active Encounters Encounter Location Date Provider Diagnosis [address] [address] 11/08/2023 Elyse Garcia PLAN OF TREATMENT No Information Progress Notes * Theo LEIJADOB:[birth year] (59 yo M)Acc No.[id number]:11/08/2023 Patient: Theo LEIJA Provider: Elyse Garcia APRN :1965 Age:58 Y Sex:Male Date:11/08/2023 Address:[address] [id number] Subjective: * Chief Complaints: * 1. CPE, F/U sciatica, labs. * Medical History: * Medications: Taking Percocet 10-325 MG Tablet 1 tablet as needed Orally every 6 hrs (few tabs leftover from TKR surgery), Taking Meloxicam 15 MG Tablet 1 tablet Orally Once a day Objective: Assessment: Plan: * Treatment: * Billing Information: * Visit Code: * Procedure Codes: * The named appointment provid er may or may not be the originator of this progress note, and it is not deemed complete until electronically signed by the appointment provider. Sign off status: Pending * Provider: Elyse Garcia APRN Date: 11/08/2023
--- NOTE | ~2024-12-19 | XR_ITS ---
EXAMINATION: XR abdomen/kub 1V, 12/19/2024 14:15 CDT HISTORY: rlq pain, r/o stone COMPARISON: No comparisons available. Technique: 3 view. Findings: Moderate fecal content, no dilated bowel loops. Left Kidney midpole renal calculus 3 mm No acute osseous abnormality. Impression: 1. No acute abnormality. Reviewed, dictated and finalized at location P. Impression: 1. No acute abnormality.
--- OUTSIDE RECORDS SUMMARY | 2024-12-19 13:58 | XMS_ITS | Clinical Summary ---
Author Organization [facility] Address [address] [place] [address] Care Team Providers Care Savings Teller Name Role Phone Ever Burroughs DO Unavailable [phone] [facility],non-owned Affiliates and Associated Physician Practices is amultiple site organization consisting of ambulatory clinics and hospital sitesin [place], [place], [place]. This disclosure is being madepursuant to the Care Everywhere program and may not contain all information available regarding this patient. Last updated 17.[facility] Allergies No known active allergies Medications * Be aware that medications may not be up to date on this document. Alwaysverify current medications with the patient. diphenhydrAMINE (BENADRYL) 25 MG capsule Take 25 mg by mouth at bedtime Takes nightly for sleep Active Multiple Vitamin (MULTIVITAMIN ADULT PO) Take by mouth once daily Active Sontag-3 Fatty Acids (FISH OIL) 1000 MG capsule Take by mouth once daily Active ondansetron (ZOFRAN) 4 MG tablet Take 1 (one) tablet by mouth every 6 hours as needed for Nausea/Vomit ing 30 tablet 09/02/2021 Active meloxicam (MOBIC) 15 MG tablet Take 1 (one) tablet by mouth once daily 30 tablet 09/02/2021 Active oxyCODONE-aceta minophen (PERCOCET) 10-325 MG tablet Take 0.5 (one-half) tablet to 1 (one) tablet by mouth every 6 hours as needed for Pain 28 tablet 09/12/2021 Active oxyCODONE-aceta minophen (PERCOCET) 10-325 MG tablet Take 0.5 (one-half) tablet to 1 (one) tablet by mouth every 6 hours as needed for Pain 28 tablet 09/24/2021 Active Active Problems Problem Noted Date Diagnosed Date Primary osteoarthritis of both knees 02/07/2021 Social History Tobacco Use Types Packs/Day Years Used Date Smoking Tobacco: Every Day Cigarettes 0.3 40.8 Started: 1984 Smokeless Tobacco: Never Tobacco Cessation:Ready [...] at Not on file Legal Sex Male 4:20 AM STUNT MAN Gender Identity Not on file Sexual Orientation [...] 7:01 AM CDT Height 170.2 cm (5' 7) 09/01/2021 7:01 AM CDT Body Mass Index 35.27 09/01/2021 7:01 AM CDT Plan of Treatment Health Maintenance Due Date Last Done Comments FERNANDO (AGES 45-75) - COL ON CA SCREENING 1963 COLON MONITORING 1963 COLONOSCOPY - COLON CA SCREENING 1963 CT COLONOGRAPHY - COLON CA SCREENING 1963 Colorectal Cancer Screening 1963 FIT - COLON CA SCREENING 1963 FLEX SIG - COLON CA SCREENING 1963 LIPID TESTING 1963 HIV SCREENING 1978 HEPATITIS C SCREENING 04/20/1981 DTAP/TDAP/TD VACCINES (1 - Tdap) 1982 PNEUMOCOCCAL VACCINE 50+ (1 of 1 - PCV) 2013 ZOSTER VACCINE (1 of 2) 2013 DEPRESSION SCREENING 02/27/2024 SCREENING FOR DIABETES 08/02/2024 , 04/21/2021 COVID-19 VACCINE (2024-2 6 season) 2024 03/27/2021, 06/16/2020, 05/19/2020 INFLUENZA VACCINE (#1) 2024 03/27/2021 Respiratory Syncytial Virus (RSV) Vaccine Pt: or [...] this topic Medical Devices Implanted Type Area Snow Groomer Device Identifier Shelf Expiration Date Model / Serial / Lot Cmnt Bone Djo Srg Cblt 40gm Hvisc Strl Implanted:Qty: 1 on 05/11/2021 by Edouard Deal MD at [facility] Right: Knee [employer] 06/16/2022 600-15-000 / / [id number] Description:with gentamicin Cmnt Bone Djo Srg Cblt 40gm Hvisc Strl Implanted:Qty: 1 on 05/11/2021 by Edouard Deal MD at [facility] Right: Knee [employer] 06/14/2022 600-15-000 / / [id number] Cmpnt Ptlr 31mm 1 Pg Wire Ascnt Arcm Kn Implanted:Qty: 1 on 05/11/2021 by Edouard Deal MD at [facility] Right: Knee [employer] 04/24/2026 [id number] / / [id number] Tray Tib 83mm Kn Cocr I Beam Implanted:Qty: 1 on 05/11/2021 by Edouard Deal MD at [facility] Right: Knee [employer] 01/31/2031 [id number] / / [id number] Cmpnt Fem Kn Rt Cr Cmnt Prm Vngrd Intlk Implanted:Qty: 1 on 05/11/2021 by Edouard Deal MD at [facility] Right: Knee [employer] [id number] / / [id number] Brng [id number] Vngrd Arcm Kn Ant Stab Implanted:Qty: 1 on 05/11/2021 by Edouard Deal MD at [facility] Right: Knee [employer] 12/13/2022 [id number] / / [id number] Tray Tib 79mm Kn Cocr I Beam Implanted:Qty: 1 on 09/01/2021 by Edouard Deal MD at [facility] Left: Knee [employer] 06/20/2031 [id number] / / [id number] Cmpnt Fem Kn Lt Cr Cmnt Prm Vngrd Intlk Implanted:Qty: 1 on 09/01/2021 by Edouard Deal MD at [facility] Left: Knee [employer] 05/25/2031 [id number] / / [id number] Brng [id number] Vngrd Arcm Kn Ant Stab Implanted:Qty: 1 on 09/01/2021 by Edouard Deal MD at [facility] Left: Knee [employer] 07/15/2026 [id number] / / [id number] Cmnt Bone Djo Srg Cblt 40gm Hvisc Strl Implanted:Qty: 1 on 09/01/2021 by Edouard Deal MD at [facility] Left: Knee [employer] 09/08/2022 600-15-000 / / [id number] Cmnt Bone Djo Srg Cblt 40gm Hvisc Strl Implanted:Qty: 1 on 09/01/2021 by Edouard Deal MD at [facility] Left: Knee [employer] 09/08/2022 600-15-000 / / [id number] Cmpnt Ptlr 31mm 1 Pg Wire Ascnt Arcm Kn Implanted:Qty: 1 on 09/01/2021 by Edouard Deal MD at [facility] Left: Knee [employer] 07/29/2026 [id number] / / [id number] Procedures Procedure Name Priority Date/Time Associated Diagnosis [...] CDT 08/02/2021 1:35 PM CDT Mari Cervantes CIRCULATOR-[address] SUPERVISOR LAB - CHEMISTRY OR DERABLES Final Result [facility] [id number] [place] [address] from Last 3 Months or Most Recently Relevant to Health Maintenance Insurance [facility] [employer] Advance Directives * Full Code (Latest Code Status on File) Date Activated Date Inactivated Comments 09/01/2021 11:29 AM 09/02/2021 4:54 PM * Full Code Date Activated Date Inactivated Comments 05/11/2021 12:11 PM 05/12/2021 1:44 PM Care Teams Savings Teller Relationship Specialty Start Date End Date Ever Burroughs DO Orthopedic Surgery 09/28/14
--- OUTSIDE RECORDS SUMMARY | 2024-12-19 13:58 | XMS_ITS | Patient Health Record ---
Author Organization [facility] Address [address] [place] [address] Care Team Providers Care Industrial Psychology Professor Name Role Phone Elyse Garcia Primary Care Provider ALLERGIES No Known Allergies REASON FOR REFERRAL [...] Problem Shingles (B02.9) Active confirmed Shing les (6261303) Problem Osteoarthritis (M19.90) Active confirmed Osteoarthritis ([id number]) PLAN OF TREATMENT No Information Insurance Providers Payer Name Payer Address Payer Phone Subscriber Number Group Number Insured Name Patient Relationship to Insured Coverage Start Date Coverage End Date CuPcAkE & other things you bakeERS BENEFITS [facility] [address] [address] [place] [address] [id number] [phone] Theo Carvalho Self - patient is the insured MEDICAL (GENERAL) HISTORY Medical History History ICD Code Shingles B02.9 Osteoarthritis M19.90 Surgical History Surgery Date(Month/Year) orthopedic surgeon Dr. Victor Hugo castañeda at [facility] - Hx R TKR, 3 months later L TKR completed. 2021
--- OUTSIDE RECORDS SUMMARY | 2024-12-19 13:58 | XMS_ITS | Clinical Summary ---
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 Gender Identity Not on file Sexual Orientation Not on file Obstetrics History Last Filed Vital Signs Vital Sign Reading Time Taken Comments Blood Pressure 120/80 01/22/2018 3:15 PM DISTRICT ATTORNEY Pulse 88 01/22/2018 3:15 PM DISTRICT ATTORNEY Temperature - - Respiratory Rate - - Oxygen Saturation 98% 01/22/2018 3:15 PM DISTRICT ATTORNEY Inhaled Oxygen Concentration - - Weight 103 kg (227 lb) 01/22/2018 3:15 PM DISTRICT ATTORNEY Height 171.5 cm (5' 7.5) 01/22/2018 3:15 PM DISTRICT ATTORNEY Body Mass Index 35.03 01/22/2018 3:15 PM DISTRICT ATTORNEY Plan of Treatment Not on file Insurance R [facility] Care Teams Assignment Manager Relationship Specialty Start Date End Date No, Physician PCP - General 07/12/20
[2024-12-19 14:06] VITALS: BP 140/89; PULSE 76; RESP 18; TEMP 36.4; O2SAT 99
--- NOTE | 2024-12-19 14:28 | ED_ITS ---
HPI - Abdominal Pain General Chief Complaint: Urogenital-Male Stated Complaint: kidney stone Time Seen by Provider: 12/19/24 14:07 Source: patient and RN notes reviewed Mode of arrival: ambulatory Limitations: no limitations History of Present Illness HPI narrative: 59-year-old male patient presents today with right lower quadrant pain and cramping since midnight with 2 episodes of vomiting and residual nausea. Denies back pain, fever, diarrhea. He has been taking naproxen with little relief and currently rates his pain 5/10. He does have history of kidney stone approximately 10 years ago. The location of his pain has not changed throughout the day. Related Data Home Medications ?Medication ?Instructions ?Recorded ?Confirmed ?Last Taken ?Type No Home Medications 12/19/24 12/19/24 U nknown History Allergies Allergy/AdvReac Type Severity Reaction Status Date / Time No Known Allergies Allergy Verified 12/19/24 14:08 [facility] Past Medical History Medical History History of tobacco use Surgical History Surgical History History of right knee joint replacement H/O arthroscopic knee surgery Family History Family History Mother Family history non-contributory Social History Social History Smoking status: Former smoker Substance use: current Substance use type: marijuana Living arrangements: with family Gender identity (if verbalized by the patient): Male Sexual Orientation (if Verbalized by the Patient): Straight or Heterosexual Spiritual care concerns: No Comments At time of signature, I have reviewed and agree with nursing past medical, surgical, social and family history unless otherwise noted. Please see nursing chart for further information. There is no relevant family history pertinent to the presenting complaint Exam Narrative: GENERAL: Well-appearing, well-nourished, and in no acute distress. HEAD: Normocephalic, atraumatic. EYES: EOMI. No redness or drainage. Conjunctivae normal. ENT: Mucous membranes pink and moist. Throat normal. Uvula midline. NECK: Normal AROM. CHEST: No respiratory distress. Clear to auscultation. HEART: Regular rate and rhythm. No murmur appreciated. Normal peripheral pulses. ABDOMEN: Soft, nontender, nondistended, normal active bowel sounds. Patient localizes his pain in the right lower quadrant but is nontender.-CVAT. Negative heel jar. Patient is guarding his right lower abdomen. Negative psoas sign. MUSCULOSKELETAL: No bony tenderness of the thoracic or lumbar spine or paraspinal muscles.. SKIN: Warm, dry, no rash. Capillary refill normal. Normal skin turgor. NEURO: No focal deficits. Alert and oriented x3. Gait steady. PSYCH: Normal affect. No signs of depression or anxiety. Course Course Level of Care: Express Care Visit Vital Signs Vital signs: Vital Signs Temperature 97.5 F L 12/19/24 14:06 Pulse Rate 76 12/19/24 14:06 Respiratory Rate 18 12/19/24 14:06 Blood Pressure 140/89 12/19/24 14:06 Pulse Oximetry 99 12/19/24 14:06 Oxygen Delivery Room Air 12/19/24 14:06 Temperature 97.5 F L 12/19/24 14:06 Pulse Rate 76 12/19/24 14:06 Respiratory Rate 18 12/19/24 14:06 Blood Pressure 140/89 12/19/24 14:06 Pulse Oximetry 99 12/19/24 14:06 Oxygen Delivery Room Air 12/19/24 14:06 Review MDM - Abdominal Pain MDM Narrative Medical decision making narrative: 59-year-old male patient presents today with right lower quadrant pain and cramping since midnight with 2 episodes of vomiting and residual nausea. Denies back pain, fever, diarrhea. He has been taking naproxen with little relief and currently rates his pain 5/10. He does have history of kidney stone approximately 10 years ago. Upon exam, patient has some mild pain distress and is guarding the abdomen, but abdomen is nontender to palpation, no heel jar, no psoas sign. No CVAT bilaterally. X-ray is negative for anything acute. Urinalysis shows 1+ protein but is otherwise negative. Patient's abdomen is nontender and x-ray shows some moderate stool, pain may be due to constipation. Gave patient option of being transferred to the ER for further evaluation or home to take some MiraLax to see if this will help his pain if he has some bowel movements. Patient would like to go home and try home treatment at this time. Strict ED precautions given. Vital signs stable. Differential Diagnosis Differential diagnosis: Likely abdominal pain, acute appendicitis, calculus of kidney and constipation Lab Data Attestation: I reviewed the patient's lab results. Labs: Lab Results 12/19/24 Range/Units 14:10 POC Urine Color Yellow POC Urine Clarity Clear POC Urine pH 5.5 POC Ur Specif [place] 1.025 POC Urine Protein 1+ (Negative) POC Ur Glucose (UA) Negative (Negative) POC Urine Ketones Negative (Negative) POC Urine Blood Negative (Negative) POC Urine Nitrite Negative (Negative) POC Urine Bilirubin Negative (Negative) POC Urine Urobilinogen 0.2 POC U Leukocyte Esteras Negative (Negative) Imaging Data Radiologist's impression: ITS Impressions Abdomen X-Ray 12/19/24 14:34 Impression: 1. No acute abnormality. Critical Care Time Critical Care Time Critical Care Time: No Discharge Plan Discharge Clinical Impression: Abdominal pain Qualifiers: Abdominal location: right upper quadrant Qualified Code(s): R10.11 - Right upper quadrant pain Constipation Qualifiers: Constipation type: unspecified constipation type Qualified Code(s): K59.00 - Constipation, unspecified Patient Disposition: Home Condition: Stable Instructions: Constipation (DC), Abdominal Pain (ED) Additional Instructions: Your x-ray shows a moderate amount of stool in your colon but is otherwise normal. You have declined transfer to the ER today. You may want to consider taking something for your constipation such as MiraLax or Dulcolax. Drink plenty of water. As discussed, if symptoms worsen or you are unable to keep down fluids, please go to the ER for further evaluation. Patient Language: Romanian Prescriptions: No Action No Home Medications Follow-up/Referrals: UNKNOWN,DOCTOR [Primary Care Provider] Time of Disposition: 14:58
[2024-12-19] MEDS: ONDANSETRON HCL ODT 4 MG TABLET 8 MG SUBLINGUAL (14:31)
[2024-12-19 14:34] LABS: EDUAAPPEAR Clear; EDUABILI Negative (Negative); EDUABLOOD Negative (Negative); EDUACOLOR1 Yellow; EDUAGLUCOSE Negative (Negative); EDUAKETONE Negative (Negative); EDUALEUKO Negative (Negative); EDUANITRATE Negative (Negative); EDUAPH 5.5; EDUAPROTEIN 1+ (Negative); EDUASPGRAVITY 1.025; EDUAUROBILI 0.2
== END 2024-12-19 15:06 | disposition home or self-care (01) ==
PROVIDERS: Emergency Provider Nurse Practitioner
DX: R10.31 Right lower quadrant pain (principal); K59.00 Constipation, unspecified; Z96.651 Presence of right artificial knee joint
CPT/HCPCS: 74018; 81003; 99213; A9270; G0463